=== PATIENT | male | born 1990 | race Caucasian/White ===

== ENCOUNTER → 2022-03-16 11:38 | Outpatient (BNVA) | payer OTHER, SELFPAY | PROVIDERS: PCP Internal Medicine; Visit Provider Physician Assistant Surgical | DX: Z13.89 Encounter for screening for other disorder (principal) ==

== ENCOUNTER → 2022-03-23 12:39 | Outpatient (BNVA) | payer OTHER, SELFPAY | PROVIDERS: PCP Internal Medicine; Visit Provider Physician Assistant | DX: Z98.84 Bariatric surgery status (principal) ==

== ENCOUNTER 2022-03-23 15:25 | Outpatient (REF) | payer OTHER, SELFPAY ==
[2022-03-25 11:30] LABS: H Pylori Breath Test Negative (Negative)
== END 2022-03-23 15:26 | disposition home or self-care (01) ==
LOC: HO.LNP 15:25
PROVIDERS: Visit Provider Physician Assistant
DX: Z01.818 Encounter for other preprocedural examination (principal); E66.01 Morbid (severe) obesity due to excess calories; Z98.84 Bariatric surgery status; G47.33 Obstructive sleep apnea (adult) (pediatric); Z11.0 Encounter for screening for intestinal infectious diseases
CPT/HCPCS: 83013

== ENCOUNTER 2022-03-26 08:59 | Outpatient (REF) | payer OTHER, SELFPAY ==
--- NOTE | ~2022-03-26 | XR_ITS ---
EXAMINATION: XR chest 2V CLINICAL INFORMATION: Reason for Exam E66.01 - Morbid (severe) obesity due to excess calories COMPARISON: None TECHNIQUE: 2 views of the chest FINDINGS: Clear lungs. No pneumothorax or pleural effusion. Normal cardiomediastinal silhouette. XR/XR chest 2V IMPRESSION: * Clear lungs.
--- NOTE | 2022-03-26 09:06 | ECG_ITS ---
Test Reason : obesity Blood Pressure : / mmHG Vent. Rate : 080 BPM Atrial Rate : 080 BPM P-R Int : 132 ms QRS Dur : 084 ms QT Int : 344 ms P-R-T Axes : 030 090 006 degrees QTc Int : 396 ms Normal sinus rhythm Rightward axis Borderline ECG No previous ECGs available Referred By: Roz Grover Electronically Signed By:KRISTIN CLARKE MD
[2022-03-26 09:33] LABS: MANUAL DIFF FLAG NO
[2022-03-26 10:23] LABS: Basophils Absolute Auto 0.1 X10*3/uL (0.0-0.2); Eosinophils Absolute Auto 0.2 X10*3/uL (0.0-0.4); Eosinophils Percent Auto 3.4 % (0-4); Hemoglobin 18.8 g/dl (14.0-18.0); Imm Gran Pct Auto 1.4 % (0.0-0.4); Lymphocytes Absolute Auto 2.3 X10*3/uL (1.2-4.9); Lymphocytes Percent Auto 32.6 % (20-40); Mean Corpuscular HGB Conc 33.6 g/dl (31.0-36.0); Mean Corpuscular Volume 89.3 fL (80.0-98.0); Mean Platelet Volume 9.3 fL (9.4-12.4); Monocytes Absolute Auto 0.6 X10*3/uL (0.1-1.2); Monocytes Percent Auto 8.6 % (2-11); Neutrophils Absolute Auto 3.8 x10*3/uL (2.0-8.3); Platelet Count 295 X10*3/uL (160-400); Red Blood Count 6.26 X10*6/uL (4.60-5.80); Red Cell Distribution Width 12.8 % (11.0-16.0); White Blood Count 7.1 X10*3/uL (4.8-10.8)
[2022-03-26 10:25] LABS: Hematocrit 55.9 % (42.0-52.0)
[2022-03-26 10:43] LABS: Estimated Average Glucose 111 mg/dL; Hemoglobin A1c % 5.5 %
[2022-03-26 11:21] LABS: Alanine Aminotransferase 49 U/L (0-40); Albumin Level 4.1 g/dL (3.5-5.0); Alkaline Phosphatase 46 U/L (39-117); Anion Gap 14 (12-20); Aspartate Amino Transferase 67 U/L (5-37); Bilirubin Total 0.8 mg/dL (0.0-1.0); Blood Urea Nitrogen 19 mg/dL (9-16); C Reactive Protein 0.71 mg/dL (< or = 0.50); Calcium 9.4 mg/dL (8.4-10.2); Carbon Dioxide 26 mmol/L (22-29); Chloride 104 mmol/L (96-108); Cholesterol 197 mg/dL; Estimated Glomerular Filt Rate > 60; Glucose Random 73 mg/dL (60-115); HDL Cholesterol 38 mg/dL; Iron 156 mcg/dL (45-160); LDL Cholesterol Calculated 138 mg/dl; Percent Iron Saturation 52 % (15-50); Potassium 4.1 mmol/L (3.3-5.1); Sodium 140 mmol/L (135-145); Total Iron Binding Capacity 298 mcg/dL (228-428); Total Protein 7.2 g/dL (6.5-8.0); Triglycerides 109 mg/dL; Unsaturated Iron Binding 142 ug/dL
[2022-03-26 11:42] LABS: Folate 11.8 ng/mL (> or = 4.0); Vitamin B12 476 pg/mL (200-900)
[2022-03-26 11:46] LABS: Ferritin 114 ng/mL (20-250); Insulin 12 uU/mL (2-29); TSH reflex Free T4 1.55 uIU/mL (0.32-4.0); Vitamin D 25-OH Total 14.8 ng/mL (>30)
[2022-03-27 13:38] LABS: Calcium (PTHI) 9.4 mg/dL (8.6-10.3); PTHI 40 pg/mL (16-77)
[2022-03-29 23:06] LABS: Vitamin A 52 mcg/dL (38-98)
[2022-03-30 06:28] LABS: Vitamin B1 11 nmol/L (8-30)
[2022-03-30 15:38] LABS: Zinc 78 mcg/dL (60-130)
== END 2022-03-26 09:00 | disposition home or self-care (01) ==
LOC: HO.XRAY 08:59
PROVIDERS: PCP Internal Medicine; Visit Provider Physician Assistant
DX: Z01.818 Encounter for other preprocedural examination (principal); E66.01 Morbid (severe) obesity due to excess calories; G47.33 Obstructive sleep apnea (adult) (pediatric); Z98.84 Bariatric surgery status
CPT/HCPCS: 36415; 71046; 80053; 80061; 82306; 82607; 82728; 82746; 83036; 83525; 83540; 83970; 84425; 84443; 84590; 84630; 85025; 86140; 93005

== ENCOUNTER → 2022-04-13 15:28 | Outpatient (BNVA) | payer OTHER, SELFPAY | PROVIDERS: PCP Internal Medicine; Visit Provider Physician Assistant | DX: Z98.84 Bariatric surgery status (principal) ==

== ENCOUNTER → 2022-04-16 11:22 | Outpatient (BNVA) | payer OTHER, SELFPAY | PROVIDERS: PCP Internal Medicine; Visit Provider Dietitian, Registered | DX: E66.01 Morbid (severe) obesity due to excess calories (principal) | CPT/HCPCS: 97802 ==

== ENCOUNTER → 2022-04-20 08:17 | Outpatient (BNVA) | payer OTHER, SELFPAY | PROVIDERS: PCP Internal Medicine; Visit Provider Physician Assistant Surgical | DX: Z13.89 Encounter for screening for other disorder (principal) ==

== ENCOUNTER → 2022-04-28 14:30 | Outpatient (BNVA) | payer OTHER, SELFPAY | PROVIDERS: Visit Provider Counselor Mental Health | DX: F43.21 Adjustment disorder with depressed mood (principal); E66.01 Morbid (severe) obesity due to excess calories; Z98.84 Bariatric surgery status | CPT/HCPCS: 90791 ==

== ENCOUNTER → 2022-05-04 16:00 | Outpatient (BNVA) | payer OTHER, SELFPAY | PROVIDERS: PCP Internal Medicine; Visit Provider Physician Assistant | DX: Z13.89 Encounter for screening for other disorder (principal) ==

== ENCOUNTER 2022-05-11 08:48 | Outpatient (REF) | payer OTHER, SELFPAY ==
--- NOTE | ~2022-05-11 | US_ITS ---
EXAMINATION: US COMPLETE ABDOMEN WITH LIVER ELASTOGRAPHY CLINICAL INFORMATION: [id number]-lswaxg obesity due to excess calories. COMPARISON: None. TECHNIQUE: Real-time imaging of the abdominal viscera. Noninvasive ultrasound liver fibrosis assessment is performed using Mary ElastPQ point quantification shear wave elastography (2D-SWE) with a C5-2 MHz transducer. Multiple elastography samples are obtained. FINDINGS: PANCREAS: Normal. The visualized pancreatic head and body are normal in appearance. The remainder of the pancreas is obscured from visualization by the overlying bowel gas. ABDOMINAL AORTA: The proximal, middle, and distal aortic segments are normal in caliber. INFERIOR VENA CAVA: Visualized portions are normal. LIVER: The liver is high riding and subcostal limiting evaluation of the liver. The liver demonstrates normal size, contour and increased echogenicity. No focal lesion or intrahepatic biliary duct dilatation. The right lobe measures 19.8 cm in length. The left lobe measures 12.2 cm in length. Portal flow is hepatopedal Shear wave liver elastography median stiffness is 1.4 m/s (reference: normal median stiffness is 1.3 m/s or less). IQR/median stiffness to assess sampling precision is 0.36 (reference: good quality data set is IQR/median stiffness of 0.15 or less). GALLBLADDER: The gallbladder is physiologically distended without evidence of stones, sludge, polyps, wall thickening or pericholecystic fluid. COMMON BILE DUCT: Normal in caliber measuring 0.3 cm in diameter. RIGHT KIDNEY: Normal. No hydronephrosis. No renal calculi or focal parenchymal lesions. The kidney measures 11.9 cm in maximum dimension. LEFT KIDNEY: Normal. No hydronephrosis. No renal calculi or focal parenchymal lesions. The kidney measures 11.7 cm in maximum dimension. SPLEEN: Normal. The spleen measures 11.4 cm in maximum dimension. FREE FLUID: None. US/US abdomen comp w elastography IMPRESSION: 1. Small gallbladder polyps. 2. Mild hepatic steatosis. 3. Liver elastography: Again liver stiffness measures 1.4 m/s corresponding to cACLD (ruled out). REFERENCE: Society of Radiologists in Ultrasound Liver Stiffness Thresholds (2020): LIVER STIFFNESS THRESHOLDS: *Liver Stiffness equal or less than 1.3 m/s: High probability of being normal. *Liver Stiffness less than 1.7 m/s: In the absence of other known clinical signs, rules out compensated advanced chronic liver disease. *Liver Stiffness 1.7-2.1 m/s: Suggestive of compensated advanced chronic liver disease but need further test for confirmation. *Liver Stiffness over 2.1 m/s: Rules in compensated advanced chronic liver disease. *Liver Stiffness over 2.4 m/s: Suggestive of clinically significant portal hypertension. QUALITY OF DATA SET: *IQR/Median value equal or less than 0.15 implies a quality data set. *IQR/Median value over 0.15 implies a poor quality data set. SIGNIFICANT CHANGE FROM PRIOR EXAM: Significant change if liver stiffness measurement is 10% or greater from prior exam. OTHER CONSIDERATIONS: The stage of liver fibrosis may be overestimated in the setting of acute hepatitis, liver inflammation, elevated liver function tests, hepatic vascular congestion, obstructive cholestasis, non-fasting state, and infiltrative diseases such as amyloidosis and lymphoma. In some patients with NAFLD, the liver stiffness thresholds for compensated advanced chronic liver disease may be lower. In causes other than viral hepatitis and NAFLD, liver stiffness thresholds are not well established.
--- NOTE | ~2022-05-11 | FL_ITS ---
PROCEDURE: XR FLUOROSCOPY UPPER GI WITH AIR CLINICAL INFORMATION: Morbid/severe obesity. COMPARISON: None TECHNIQUE: Routine upper GI air-contrast study was performed in upright and lying position. FINDINGS: Following oral administration of thick barium and effervescent granules there is normal propagation of bolus from the oral cavity through the pharynx, esophagus into stomach without any evidence of obstruction, narrowing or stricture. On placing patient supine and prone there is evidence of previous gastric sleeve surgery. The fundal part of the stomach appears almost normal caliber as before. The gastric body is slightly narrowed. The distal stomach, duodenum and the sweep is normal. The mucosal pattern of stomach, duodenal bulb and the sweep is normal. Mild gastroesophageal reflux was seen. FLUOROSCOPY TIME: 1.7 minutes DOSE AREA PRODUCT: 93.898 uGy-m2 (microgray-meter squared) FL/FL upper GI w air IMPRESSION: Mild gastroesophageal reflux. Evidence of previous gastric sleeve surgery. The fundus appears normal caliber same as before. The body of the stomach is narrowed. The pylorus is normal caliber. No mucosal abnormality seen.
== END 2022-05-11 08:49 | disposition home or self-care (01) ==
LOC: HO.US 08:48
PROVIDERS: PCP Internal Medicine; Visit Provider Physician Assistant
DX: Z01.818 Encounter for other preprocedural examination (principal); E66.01 Morbid (severe) obesity due to excess calories; G47.33 Obstructive sleep apnea (adult) (pediatric); Z98.84 Bariatric surgery status
CPT/HCPCS: 74246; 76705; 76981

== ENCOUNTER → 2022-05-20 08:12 | Outpatient (BNVA) | payer OTHER, SELFPAY | PROVIDERS: PCP Internal Medicine; Visit Provider Surgery | DX: Z13.89 Encounter for screening for other disorder (principal) ==

== ENCOUNTER 2022-06-03 07:32 | Outpatient (REF) | payer OTHER, SELFPAY ==
[2022-06-03 07:51] LABS: MANUAL DIFF FLAG NO
[2022-06-03 08:12] LABS: Prothrombin Time 11.7 SEC (10.0-13.1)
[2022-06-03 08:14] LABS: Estimated Average Glucose 105 mg/dL; Hemoglobin A1c % 5.3 %
[2022-06-03 08:15] LABS: Partial Thromboplastin Time 34.9 SEC (26.0-36.4)
[2022-06-03 08:21] LABS: Basophils Percent Auto 0.5 % (0-2); Eosinophils Absolute Auto 0.2 X10*3/uL (0.0-0.4); Eosinophils Percent Auto 2.9 % (0-4); Hemoglobin 18.8 g/dl (14.0-18.0); Imm Gran Abs Auto 0.08 X10*3/uL (0.00-0.03); Lymphocytes Absolute Auto 1.9 X10*3/uL (1.2-4.9); Lymphocytes Percent Auto 23.6 % (20-40); Mean Corpuscular HGB Conc 33.4 g/dl (31.0-36.0); Mean Corpuscular Hemoglobin 29.9 pg (27.0-33.0); Mean Corpuscular Volume 89.5 fL (80.0-98.0); Mean Platelet Volume 9.1 fL (9.4-12.4); Monocytes Absolute Auto 0.6 X10*3/uL (0.1-1.2); Monocytes Percent Auto 7.4 % (2-11); Neutrophils Absolute Auto 5.1 x10*3/uL (2.0-8.3); Neutrophils Percent Auto 64.6 % (45-73); Platelet Count 248 X10*3/uL (160-400); Red Blood Count 6.29 X10*6/uL (4.60-5.80); Red Cell Distribution Width 13.3 % (11.0-16.0); White Blood Count 7.9 X10*3/uL (4.8-10.8)
[2022-06-03 08:26] LABS: Hematocrit 56.3 % (42.0-52.0)
[2022-06-03 08:47] LABS: Alanine Aminotransferase 26 U/L (0-40); Albumin Level 4.2 g/dL (3.5-5.0); Alkaline Phosphatase 57 U/L (39-117); Anion Gap 11 (12-20); Aspartate Amino Transferase 22 U/L (5-37); Bilirubin Total 0.9 mg/dL (0.0-1.0); Blood Urea Nitrogen 12 mg/dL (9-16); C Reactive Protein 0.48 mg/dL (< or = 0.50); Calcium 9.1 mg/dL (8.4-10.2); Carbon Dioxide 23 mmol/L (22-29); Chloride 111 mmol/L (96-108); Cholesterol 223 mg/dL; Estimated Glomerular Filt Rate > 60; Glucose Random 100 mg/dL (60-115); HDL Cholesterol 41 mg/dL; LDL Cholesterol Calculated 159 mg/dl; Potassium 4.1 mmol/L (3.3-5.1); Sodium 141 mmol/L (135-145); Triglycerides 117 mg/dL
[2022-06-03 08:52] LABS: Insulin 25 uU/mL (2-29); TSH reflex Free T4 1.64 uIU/mL (0.32-4.0)
== END 2022-06-03 07:33 | disposition home or self-care (01) ==
LOC: HO.LAB 07:32
PROVIDERS: PCP Internal Medicine; Visit Provider Surgery
DX: Z01.818 Encounter for other preprocedural examination (principal); E66.01 Morbid (severe) obesity due to excess calories
CPT/HCPCS: 36415; 80053; 80061; 83036; 83525; 84443; 85025; 85610; 85730; 86140

== ENCOUNTER → 2022-06-08 09:26 | Outpatient (BNVA) | payer OTHER, SELFPAY | PROVIDERS: PCP Internal Medicine; Visit Provider Surgery | DX: Z13.89 Encounter for screening for other disorder (principal) ==

== ENCOUNTER 2022-06-11 17:00 | Inpatient (IN) | payer OTHER, SELFPAY ==
[2022-06-05 12:04] VITALS: BMI 43.0
--- NOTE | 2022-06-05 17:41 | MHC.SHP ---
Pre-Procedural Eval Section A Date of Service: 06/05/22 The patient is an INPATIENT: Yes The History & Physical has been completed within 30 days and I have reviewed it.: Yes Section B Chief Complaint: Morbid (severe) obesity due to excess calories Relevant Family History (Specify if Yes): No Relevant Social History: None Present Medications: None Medical History: No relevant PMH History of Previous Operations: Relevant previous surgery/procedure and date(s) (laparoscopic sleeve gastrectomy) Allergies: Allergies Allergy/AdvReac Type Severity Reaction Status Date / Time No Known Allergies Allergy Verified 06/05/22 12:03 Review of Systems Sugical H&P ROS: Negative: Constitution, Cardiovascular, Respiratory, Neurological, Psychiatric, Hem-Onc, Allergic/Immunologic, Gastrointestinal, Genitourinary, Musculoskeletal, Integumentary, Endocrine and Eyes/Ears/Nose/Throat Exam Surgical H&P Exam: Normal: HEENT, Normal: Heart, Normal: Lungs, Normal: Extremities, Normal: Abdomen, Normal: Skin and Normal: Neurological Plan Diagnosis/Plan: Unchanged I have reviewed the history and physical and performed a pertinent physical examination on my patient. No changes have occurred unless specified. Time Spent With Patient Time: Total time managing care of this patient today ____ minutes.
[2022-06-10 12:12] LABS: COVID-19 Test Negative (Negative); IDNOW Serial# 08D9AD1C
[2022-06-11] VITALS (17 sets, daily range): BP systolic 119–175; BP diastolic 69–121; PULSE 85–122; RESP 16–32; TEMP 36.6–37.4; O2SAT 94–97; BMI 41.8
--- NOTE | ~2022-06-11 | US_ITS ---
EXAMINATION: US VENOUS WITH DOPPLER UPPER EXTREMITY, BILATERAL CLINICAL INFORMATION: Possible compartment syndrome COMPARISON: None available. TECHNIQUE: Ultrasound of the upper extremity is performed using compression sonography and color and pulse Doppler flow with assessment of augmentation of flow. There is also imaging and Doppler assessment of the jugular and subclavian veins. Spectral analysis with color-flow imaging is performed. FINDINGS: Respiratory variation, normal compression, and augmented flow are noted throughout the upper extremity including the axillary, brachial, cubital, and radial and ulnar veins. There is normal flow in the internal jugular and subclavian veins. There is no visible deep or superficial thrombophlebitis. If the patient's symptoms progress, a followup ultrasound in 5 -7 days might be of value to exclude proximal propagation from a nonvisualized distal arm vein. US/US venous duplex UE BI IMPRESSION: Deep venous system of the upper extremities are patent. No evidence of deep venous thrombosis
--- NOTE | ~2022-06-11 | US_ITS ---
EXAMINATION: US ARTERIAL DUPLEX UPPER EXTREMITY BILATERAL CLINICAL INFORMATION: Clinical concern of compartment syndrome. COMPARISON: None TECHNIQUE: Grayscale imaging and duplex Doppler imaging with spectral waveform analysis of upper extremity arteries is performed. FINDINGS: The subclavian, axillary, brachial, radial and ulnar arteries in each upper extremity exhibit normal multiphasic waveforms. No evidence of any hemodynamically significant vessel stenosis. No evidence of vascular occlusion within the examined vessels. No tardus-parvus flow in any of the examined vessels. The peak systolic velocity measurements within the vessels (cm/sec) are as follows: RIGHT Subclavian: 104 - 111 Axillary: 106 Brachial, proximal: 109 Brachial, mid: 83 Brachial, distal: 97 Radial, proximal: 62 Radial, mid: 69 Radial, distal: 93 Ulnar, proximal: 54 Ulnar, mid: 79 Ulnar, distal: 78 LEFT: Subclavian: 93 - 116 Axillary: 100 Brachial, proximal: 82 Brachial, mid: 78 Brachial, distal: 53 Radial, proximal: 54 Radial, mid: 93 Radial, distal: 105 Ulnar, proximal: 86 Ulnar, mid: 61 Ulnar, distal: no images US/US arterial duplex UE BI IMPRESSION: There is no evidence of compromised arterial flow in either upper extremity. The evaluated arteries have normal multiphasic waveforms. No vascular occlusion or hemodynamically significant stenosis.
--- NOTE | ~2022-06-11 | CT_ITS ---
EXAMINATION: CT FOREARM WITHOUT CONTRAST, LEFT CLINICAL INFORMATION: Rhabdomyolysis distal left upper extremity COMPARISON: Same day ultrasound TECHNIQUE: A noncontrast CT of the left forearm with sagittal and coronal reformats. This CT examination was performed using dose optimization techniques as appropriate, variously including the following: *Automated exposure control *Adjustment of mA and/or kV according to patient size (this includes techniques or standardized protocols for targeted exams where dose is matched to indication/reason for exam; i.e. extremities or head) *Use of iterative reconstruction technique DLP: 296 FINDINGS: There is no muscle atrophy or asymmetry of the forearm. No soft tissue gas. There is articular edema of the subcutaneous fat of the proximal forearm anteriorly. No osseous abnormality. There is questionable hypoattenuation/edema of the brachialis muscle although this may be artifactual. No abnormality demonstrated on recent ultrasound. No elbow joint effusion. CT/CT forearm LT wo IV con IMPRESSION: There is nonspecific subcutaneous edema of the proximal forearm anteriorly. This could be due to a recent IV or attempted IV access. No focal collection. Questionable hypoattenuation/edema of the brachialis muscle. Correlate clinically and consider MRI if further evaluation is desired. No soft tissue gas. No osseous abnormality.
[2022-06-11] MEDS: Lactated Ringers 1,000 ML 999 ML IV (06:36)
--- NOTE | 2022-06-11 07:24 | HO.ANESPROP2 ---
HPI - Anesthesia Eval Consult details Narrative: 32yo male patient for EGD, Laparoscopic sleeve gastrectomy, possible diaphragmatic hernia repair, possible ventral hernia repair, possible open PMFSH Active Problems Active Problems: All Active Problems (Updated 06/10/22 @ 07:28 by Edilia Iqbal RN) Morbid obesity (Acute) S/P laparoscopic sleeve gastrectomy (Acute) Pre-op evaluation (Acute) Obstructive sleep apnea (Acute) Adjustment disorder with depressed mood (Acute) Past Medical History Medical History Sleep apnea Family History Family History Mother Arthritis Fibromyalgia Father No problems noted. Sister No problems noted. Son No problems noted. Son Asthma Family history of problems with anesthesia: No Surgical History Surgical History Hx of bariatric surgery Hx of knee surgery History of Problems with Anesthesia: No Social History Social History Household Members: Family Housing: House Are you a primary home care scheduler to a significant other at home: No Do you presently have visiting nurse or other home services: No Alcohol intake: current Alcohol intake frequency: does not drink Patient Tobacco Use Status: Never used Tobacco Use of substances other than those prescribed or required for medical reasons: No Have you been hit, kicked, punched, or otherwise hurt by someone within the past year? 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 Allergies Allergy/AdvReac Type Severity Reaction Status Date / Time No Known Allergies Allergy Verified 06/05/22 12:03 Active Medications: Current Medications Lactated Ringer's (Lr) 1,000 mls @ 999 mls/hr IV .Q1H1M SAMMY Stop: 06/11/22 08:15 Last Admin: 06/11/22 06:36 Dose: 999 mls/hr Exam Exam Date and Time: June 11, 202224 Height,Weight and Vital Signs: Height 5 ft 8 in Weight 128.367 kg Last Vital Signs Temp 97.8 F 06/11/22 06:19 Pulse 85 06/11/22 06:19 Resp 16 06/11/22 06:19 BP 119/83 06/11/22 06:19 Pulse Ox 96 06/11/22 06:19 O2 Del Method Room Air 06/11/22 06:19 Pertinent Lab Results Pertinent Lab Results: Laboratory Tests 06/03/22 06/10/22 07:45 11:42 COVID-19 (ELIANA) Negative COVID-19 Clin Com See Note Blood Type O Positive Antibody Screen NEGATIVE Airway Mallampati Class: III TM Dist: >3cm Neck ROM: Full Loose/Missing/Broken Teeth: No (Denies broken, loose, missing teeth) Heart: RRR Lungs: CTAB Assessment and Plan Assessment Anesthesia Assessment: Anesthesia Plan Discussed and Chart Reviewed Final Anesthetic Review Family History of Problems with Anesthesia: No History of Problems with Anesthesia: No NPO: Yes ASA Class: III Final Preanesthetic Review: No Changes in Pt Med Stat, Meds/Allgs Chart Reviewed, Consent Obtained/Reviewed and Anes Risks/Benef Reviewed Patient Risk: Intermediate Procedure Risk: Intermediate Assessment/Block/Sedation in SS: Assess/Block/Sedation-SS Anesthetic Plan Anesthetic Plan: GA Disposition: Standard PACU and Inp. Admit - Standard Bed
--- NOTE | 2022-06-11 07:34 | PM.OP ---
Brief Operative Note Date of Service: 06/11/22 Pre-op diagnosis: Morbid obesity with comorbidities (see below) Post-op diagnosis: same Procedure: INITIAL PATIENT BMI ON PRESENTATION AT OUR OFFICE: 48.3 kg/m2 LAST BMI BEFORE SURGERY: 43.3 kg/m2 COMORBIDITIES: sleep apnea on CPAP, GERD, liver steatosis ?The patient presented to the Weight Management Program with significant obesity that was negatively impacting the patient's comorbidities as listed above.? The program is a phased program with a special focus on preoperative medical weight management to promote substantial weight loss and prepare the patients for the second phase of the program: bariatric surgery. The patient participated in an intensive weekly lifestyle ?intervention and exercise program during which the patient ?has lost between the initial office visit and the last preoperative visit 6.6lbs, or 2.51% of initial actual body weight. It was deemed appropriate for the patient to now have bariatric surgery. In light of the current Covid-19 pandemic and the well documented strong association of obesity and increased risk of worse outcomes if infected with Covid-19 (REFERENCES:https://pubmed.ncbi.nlm.nih.gov/64069174/,?https://pubmed.ncbi.nlm.nih.gov/00294642/), any delay in undergoing bariatric surgery may lead to the patient's worsening health condition and increased?risk of more severe Covid-19 disease if infected. In addition a recent?study from [facility] published in [facility] on 03/03/2021 ([email or web address]/C:/[email or web address]) found that, among patients with obesity, substantial weight loss achieved with surgery was associated with improved outcomes of COVID-19 infection. The findings suggest that obesity can be a modifiable risk factor for the severity of COVID-19 infection. In addition, the patient met the BMI-criteria for bariatric surgery based on the BMI on initial presentation. The patient should not be penalized for achieving such weight loss because ?it is not sustainable long-term without surgical intervention and it was achieved in preparation for bariatric surgery ?under my direction and based on my published research ([email or web address]:/[email or web address]).pdf and?https://www.soard.org/article/[email or web address](93)58918-X/pdf) ?that a 10% preoperative weight loss improves long-term weight loss after surgery and reduces perioperative complications.? Insurance carriers such as [employer] [facility] [facility] have endorsed my recommendations ?and have included in their policies criteria to include a 10% preoperative weight loss requirement. PROCEDURE: Esophago-gastroscopy, laparoscopic repair of incarcerated diaphragmatic hernia, laparoscopic lysis of adhesions, laparoscopic sleeve gastrectomy and laparoscopic gastropexy INDICATIONS: This is a 32 year-old male who was electively scheduled for laparoscopic, possibly open sleeve gastrectomy revision. The patient has a previous sleeve gastrectomy on 06/30/2011 at [facility] with Dr. Arvizu. Preoperative work-up including an UGI and EGD is suggestive of a very large proximal pouch of retained gastric fundus as well as incomplete distal antral resection. The objective of this operation is to redo the sleeve. The risks and complications of the procedure were discussed with the patient in advance, particularly the possibility of ; pulmonary embolism; staple line leak; bleeding; GERD; cardiac, pulmonary, or renal complications; as well as long-term problems such as insufficient weight loss, vitamin deficiency, strictures, or ulcers. The patient understood all the risks, and was in agreement to proceed with surgery. DESCRIPTION OF PROCEDURE: After informed consent was obtained from the patient, the patient was given preoperative antibiotics, and was transferred to the operating room. After successful induction of general anesthesia, pneumatic compression devices were placed on both lower extremities. An upper endoscopy was performed next. The oropharynx and esophagus appeared to be within normal limits. There was no diaphragmatic hernia present consistent with the findings of the preoperative upper GI. The stomach was entered. Then after all fluid and air were suctioned and the stomach was fully decompressed, the scope was withdrawn and secured in the mid esophagus. The patient was then prepped and draped in the usual sterile manner, and abdominal access was established at the right upper quadrant with the Shonna technique. A 12 mm blunt port was inserted, and the abdomen was insufflated with CO2 to a pressure of 15 mmHg. Under direct visualization, additional ports were placed, specifically two 5 mm Versi-step ports to the left upper quadrant, and a 5 mm Versi-Step port to the right upper quadrant. 1% lidocaine plain was used to infiltrate all port sites as well as all fascia defects. Following that, the patient was placed in a steep reverse Trendelenburg position. An additional 5 mm port was placed to the right flank for the Mediflex retractor that was used to retract the left lobe of the liver. There were very extensive and dense adhesions in the abdomen from previous sleeve gastrectomy involving the left lobe of the liver and the stomach. The staple line of the sleeve was completely rotated almost 180 degrees and it was densely adherent to the undersurface of the left lobe of the liver. This required extensive abd very tedious dissection in order to be completely from the liver. It took 3.5 hours to achieve this but eventually I was able to lyse these adhesions completely with the ultrasonic device. That allowed to re-position the liver retractor in order to expose the hiatal area. The gastro-esophageal fat pad was opened with the ultrasonic device ([employer], Olympus) and the anterior esophagus and hiatus were exposed. There was no angle of His present. The entire fundus was densely adherent to the left diaphragm. Some of these adhesions were opened with the ultrasonic device partially the fundus of the stomach from any diaphragmatic and splenic attachments. I then opened the gastrocolic ligament between the transverse colon and the greater curvature of the stomach with the ultrasonic device to enter the lesser sac. This was very difficult as there were dense adhesions from previous sleeve gastrectomy. The other surgeon had left an enormous amount of gastric fundus almost to the point that it appeared there was no sleeve resection done. The previous surgeon did not dissect adequately posterior leaving short gastric vessels? which resulted in a much larger proximal stomach which was confirmed by the preoperative UGI and EGD. These posterior short gastric vessels were ligated as well as other posterior attachments that were not divided originally. These attachments were completely twisting the stomach. This allowed us to mobilize the stomach completely and appreciate the amount of stomach that was inappropriately left unresected at the original operation.? Mobilization of the stomach took approximately another 90 min to complete with a total operative time of 6.5 hours. The dissection continued all the way to the angle of His until the left robbie was completely dissected at its entirety. This was also very difficult because there were very dense attachments to the spleen. Eventually the gastric fundus was completely mobilized. At that point a Quinn was placed as the procedure took significantly more time than anticipated. The stomach was then divided transversely with two Endo FRANCOIS-45 purple loads, 4 FRANCOIS-45 orange loads and one RFANCOIS-60 purple load using the AEON stapler and loads. Every effort was made that the gastric sleeve had a tubular shape and an even caliber throughout. Multiple endoscopies were performed before each staple fire to ensure that I did not narrow the gastro-esophageal junction or the stomach anywhere. Once the sleeve resection was completed, the staple line of the gastric sleeve was reinforced with Hemoclips. The resected stomach was retrieved without difficulty from the Shonna port. A gastropexy was then performed in order to prevent postoperative GERD and partial gastric volvulus. Several interrupted 2.0 Surgidac sutures were placed between the sleeve's staple line and the previously divided greater omentum and gastro-colic ligament using the Endo-Stitch device. ?An upper endoscopy was performed. There was no narrowing at the GE junction. The scope was easily advanced all the way to the pylorus which was clearly visualized. There was no narrowing anywhere and the sleeve's caliber was even throughout. The sleeve's staple line was inspected and there was no evidence of ischemia, bleeding or dehiscence. At that point the gastroscope was withdrawn from the patient?s mouth while we were decompressing the bowel and the stomach from any remaining air. I looked into the lesser sac to see how the sleeve was situating and it was situating well. There was no bleeding from the staple line, spleen, or short gastric vessels. The Mediflex retractor was removed, and the undersurface of the liver was inspected and there was no bleeding. The patient was placed in supine position. I closed the fascial defect of the 12 mm port site with a figure of eight #1 Polysorb suture. Then 30cc Ropivacaine plain with 10 mg of Dexamethasone were used to infiltrate the fascial closure as well as all skin incisions. A total of 7ml Zynrelef was used at the Shonna port site. At this point, the abdomen was deflated, all ports were removed under direct vision, and no bleeding was noted from any of the port sites. The skin incisions were irrigated with saline and were closed with 4-0 absorbable monofilament sutures. Steri-Strips and OpSites were used to cover all incisions. The patient was extubated and was transferred in stable condition to the recovery room for further care. I was present and performed all gavin parts of the procedure. Mr. Jones was the surgical dental assistant. There were no residents to assist with this case. This was a uniquely difficult surgery for all the above reasons. Taye Newton MD, PhD, FACS Surgeon: Manny Newton MD Anesthesia: GETA, local and other (TAP block and 7ml Zynrelef) Was an Pipefitter Helper used for this Procedure?: Yes Pipefitter Helper: Raymond Jones Estimated blood loss (mL): 10 IV fluids (mL): 4,000 Urine output (mL): 90 Pathology: other (Stomach) Condition: stable Disposition: PACU
--- NOTE | 2022-06-11 07:37 | PM.PNGS ---
Subjective Subjective Date of Service: 06/12/22 Interval history: Feels well. Mild incisional pain. He is tolerating phase 1 bariatric diet No abdominal pain. No nausea or vomiting Has significant pain in the soles and hands/forearms bilaterally. Cannot move his fingers completely especially the left Has acute renal injury yesterday and evidence of rhamdomyolysis due to the extensive length of surgery. Was treated wih aggressive fluid hydration and sodium bicarbonate and creatinine is normal today. Good urine output Also required CPAP yesterday and he is hypertensive although he has no history of it requiring IV Metoprolol Physical Exam Vital Signs: Vital Signs: Last Vital Signs Temp 97.8 F 06/11/22 06:19 Pulse 85 06/11/22 06:19 Resp 16 06/11/22 06:19 BP 119/83 06/11/22 06:19 Pulse Ox 96 06/11/22 06:19 O2 Del Method Room Air 06/11/22 06:19 BMI result Body Mass Index 43.0 GI: Inspection: Yes normal to inspection, Yes incision (clean, dry and intact) and Yes obesity Palpation (GI): Soft to palpation Extrem: Right upper extremity: elbow/forearm (tenderness on palpation, limited motion range) and Extremity exam: right hand (Cannot flex/extend fingers well) Left upper extremity: elbow/forearm (tenderness on palpation, limited motion range) and hand (cannot extend / flex fingers well) Right lower extremity: normal to inspection (no calf tenderness) and foot (some tenderness on the sole) Left lower extremity: normal to inspection (no calf tenderness) and foot (some tenderness on the sole) Objective Data Active Medications Lactated Ringer's (Lr) 1,000 mls @ 999 mls/hr IV .Q1H1M SAMMY Stop: 06/11/22 08:15 Last Admin: 06/11/22 06:36 Dose: 999 mls/hr Documented By: DANYELLE Labs 06/11/22 15:36 06/11/22 15:36 Labs: Laboratory Results - last 24 hr 06/10/22 11:42 COVID-19 (ELIANA) Negative COVID-19 Clin Com See Note Procedures Date of Service Date of Service: 06/12/22 Progress Note: A&P Assessment and plan (1) Morbid obesity: Status: Acute Assessment and Plan: s/p laparoscopic sleeve gastrectomy revision, extensive lysis of adhesions, and gastropexy Doing well from GI perspective Continue aggressive fluid hydration. Will need Lasix later today Continue CK levels Continue IV Lopressor PT evaluation Keep arms/legs elevated Will keep him in the hopsital today for monitoring of rhamdomyolysis and MARIA L (2) S/P laparoscopic sleeve gastrectomy: Status: Acute (3) Obstructive sleep apnea: Status: Acute (4) GERD (gastroesophageal reflux disease): Status: Acute (5) Steatosis, liver: Status: Acute (6) Intra-abdominal adhesions: Status: Acute (7) Rhabdomyolysis: Status: Acute (8) Acute kidney injury: Status: Acute (9) Hypertension: Status: Acute Time Spent With Patient Time: Total time managing care of this patient today ____ minutes. Quality Stroke Does the patient have a stroke diagnosis?: No VTE Prior VTE?: No VTE Risk Level:: Surgical - moderate VTE Device Contraindication: N/A - Device Ordered VTE Drug Contraindication: Treatment Not Indicated
--- NOTE | 2022-06-11 15:13 | P.DS_ITS ---
DS: Providers Provider Date of Service: 06/13/22 Primary care physician: Sirisha Reyes MD DS: Diagnosis Discharge Diagnosis (1) Morbid obesity: Status: Acute (2) S/P laparoscopic sleeve gastrectomy: Status: Acute (3) Obstructive sleep apnea: Status: Acute (4) GERD (gastroesophageal reflux disease): Status: Acute (5) Steatosis, liver: Status: Acute DS: Summary Hospital Course Hospital Course: ADMITTING DIAGNOSIS: morbid obesity, RIMMA ? DISCHARGE DIAGNOSIS: same, s/p laparoscopic sleeve gastrectomy and lysis of adhesions, maria l, rhabdomyolysis ? PAST SURGICAL HISTORY: laparoscopic sleeve gastrectomy ? PROCEDURE: upper endoscopy, laparoscopic sleeve gastrectomy and lysis of adhesions ? DISCHARGE SUMMARY: ? History of Present Illness: ? The patient is a?32 year-old male with a BMI of?47 kg/m2 and associated co- morbidities as described above. The patient had extensive work-up,lost?35.4 lbs preoperatively and was electively scheduled for laparoscopic, possible open sleeve gastrectomy and gastropexy. Risks and complications of the surgery were discussed with the patient in advance, particularly the possibility of , pulmonary embolism, anastomotic leak, bleeding, bowel injury, GERD, cardiac, renal or pulmonary complications. The patient understood all the risks and was in agreement with the surgical plan. ? Hospital Course: ? The patient underwent an uneventful laparoscopic sleeve gastrectomy with gastropexy and lysis of adhesions on the day of admission. Postoperatively, the patient was transferred to the surgical floor. The patient received IV Acetaminophen and IV dilaudid for pain control. Patient was started on bariatric phase 1 diet POD #0. On postoperative day one, the patient was feeling well without nausea, vomiting, fevers, or tachycardia. The patient had some mild incisional pain and the abdomen was soft. ? On the morning of postoperative day one, the patient was continued on 1 ounce of water or ice every half hour. He was found to have MARIA L and rhabdomyolysis with CK 14,000. He was given IVF and CK trended down POD 2 to 7000. He was also seen in consultation by vascular surgery and neurology for his BUE neuropathy and bilateral foot neuropathy. Neurology felt that his symptoms of BUE neuropathy was consistent with acute rhabdomyolysis and should improve to normal over the coming days to weeks. Vascular surgery reviewed his LUE ct scan and US with no evidence of DVT or compartment syndrome per vascular surgeons exam on the afternoon of POD 2. As he had such imporvement in his symptoms, it was felt he could be discharged homw on late POD 2. During the day, the patient did fairly well, having some incisional pain, but able to ambulate adequately and to tolerate liquids well. ? Since the patient is doing well, we decided that the patient was ready to be discharged. The patient was given instructions to follow-up with me next week and to call my office for any fever over 101, persistent abdominal pain, nausea, vomiting, GERD, symptoms of DVT such as calf tenderness, or leg swelling, or pulmonary embolism such as chest pain or shortness of breath. The patient was also instructed to drink 40-60 ounces of liquids per day using the 1-ounce cups. The patient had been given prescriptions for Tylenol for pain, Zofran prn for nausea, and pantoprazole and carafate previously. The patient was encouraged to ambulate and use the incentive spirometer. The patient was allowed to shower, but no baths, and encouraged to stay active at home. All of these instructions were given to the patient personally. All questions were answered and the patient understood all instructions, the instructions were also given to the patient in print. Time Spent with Patient Time attestation: Total time managing care of this patient today ____ minutes. Discharge coordination time: Less than 30 minutes Quality: Safe Use of Opioids Does Pt have an Active Cancer Diagnosis on the Problem List?: No Quality: Stroke Does the patient have a stroke diagnosis?: No Physical Exam Vital Signs: Vital Signs: Last Vital Signs Temp 97.8 F 06/11/22 06:19 Pulse 85 06/11/22 06:19 Resp 16 06/11/22 06:19 BP 119/83 06/11/22 06:19 Pulse Ox 96 06/11/22 06:19 O2 Del Method Room Air 06/11/22 06:19 BMI result Body Mass Index 43.0 DS: Data Data Completed and Pending Pending studies at discharge: Pending at discharge 06/11/22 13:50 Surgical [PTH] Routine Discharge Plan Discharge Anticipated Discharge Date/Time: 06/13/22 19:34 Patient Disposition: Home, Self-Care Discharge Diagnosis: Morbid obesity Referrals: Sirisha Reyes MD [Primary Care Provider] - 1 Week Discharge Medications: Continued pantoprazole 40 mg tablet,delayed release (DR/EC) 40 mg PO DAILY Qty: 30 2RF sucralfate 100 mg/mL suspension 10 ml PO BID Qty: 400 2RF ondansetron 4 mg tablet,disintegrating 4 mg PO Q12H Qty: 20 0RF Rx Instructions: ONLY use if you have nausea as needed Discontinued cholecalciferol (vitamin D3) 50 mcg (2,000 unit) capsule 50 mcg PO DAILY Qty: 30 5RF Discharge Orders: Discharge Order (Routine); Ordered 06/13/22 Ordered By: Manny Newton Activity on Discharge: No heavy lifting Stand Alone Forms: Patient Portal Discharge page, Community Support Activity Restrictions/Additional Instructions: No tub baths, sex or returning to work until discussed at first post op appointment. No exercise, alcohol, tobacco or illegal drug use. Continue to use incentive spirometer hourly while awake. Walk in home for 5- 10 minutes every 2 hours during the first week. Follow all instructions in the bariatric handbook and call with any questions.Discharge Instructions 1. Please call your doctor or come back to the emergency room should any new symptoms arise. 2. You will receive a courtesy call from [facility] 24-48 hours after discharge. 3. Activity: abstain from alcohol, practice limited stair climbing, no bending, no driving, no exercise, no illicit substances, no lifting, no sex, no tub bath, no work. 4. Diet: continue as discussed with Dr. Newton. 5. Dressing Change/Wound Care: Your incision is covered by clear bandages and guaze underneath. If the area is tender, you may apply an ice pack for short intervals (no more than 20 minutes on, followed by at least 20 minutes off). Do not apply heat. Do not use creams, lotions, or topical antibiotics unless instr ucted to do so by your surgeon. These can cause infection or allergic reaction. 6. Call your doctor if: - Your temperature exceeds 101.5 F - You experience excessive pain or swelling - You have an unexpected reaction to medication - You have excessive bleeding - You experience continued vomiting/nausea - Your incision begins to separate - Your incision shows signs of infection such as increased redness, swelling, excessive pain, heat, or drainage (light blood or clear fluid is normal) 7. General instructions: No lifting greater than 5 lbs for the next 4 weeks. No driving within 24 hours of taking narcotic pain medications. If you do not move your bowels in the next 2 days, please take milk of magnesia over the counter. Please follow the post op diet and do not advance your diet until you are seen in the office in about 2 weeks. Please walk around your home every hour or two to prevent blood clots from forming in your legs. You do not need to wake from sleeping to walk. Please sleep in a bed or couch to prevent kinking at the hips and knees. Please take your incentive spirometer (your lung environmental protection specialist) home with you and use it for the next few days to prevent pneumonias. You may shower, no hot tubs, baths or swimming pools. Please call the office with any questions or concerns such as increasing abdominal pain, fever, chills, shortness of breath, chest pain, leg pain or swelling, or redness or drainage from your incisions. Please stay on stage 3 diet which includes sugar free clear liquids such as ice pops and jello and broth and crystal light. Avoid all carbonation. Please drink 3 protein shakes with at least 25-30 grams of protein daily or 3 of the Celebrate 4:1 shakes which can be purchased in our office. The Celebrate shakes have all of the bariatric vitamins you need if you consume these shakes. If you are drinking other protein shakes, you will need to purchase the Celebrate multivitamins and calcium that we provide in the office (they will provide all the vitamins you need). Please make sure you are consuming at least 40-60 ounces of water in addition to your 3 protein shakes daily. Do not hesitate to contact the office with any questions at . The patient's medical history has been reviewed and they are considered low risk for post op DVT and therefore DVT prophylaxis is not considered necessary. Travel after surgery was reviewed. The patient has not disclosed any travel plans during the first 30 days after surgery and they have been advised that within the first 30 days after surgery any bus, plane, train or car travel over 2 hours in duration is contraindicated due to the possibility of developing blood clots from immobility. Any travel, needs to include periods of ambulation of 10 minutes in duration every 2 hours.? The patient was instructed to discuss any plans for travel during this period with their bariatric surgeon. Care Plan Goals: No tub baths, sex or returning to work until discussed at first post op appointment. No exercise, alcohol, tobacco or illegal drug use. Continue to use incentive spirometer hourly while awake. Walk in home for 5- 10 minutes every 2 hours during the first week. Continue phase 1 diet today and start phase 2 diet tomorrow morning. Follow all instructions in the bariatric handbook and call with any questions. 1. Please call your doctor or come back to the emergency room should any new symptoms arise. 2. You will receive a courtesy call from [facility] 24-48 hours after discharge. 3. Activity: abstain from alcohol, practice limited stair climbing, no bending, no driving, no exercise, no illicit substances, no lifting, no sex, no tub bath, no work. 4. Diet: continue as discussed with bariatric team.. 5. Dressing Change/Wound Care: Do not change or remove surgical dressings unless they are wet or soiled. 6. Call your doctor if: - Your temperature exceeds 101.5 F - You experience excessive pain or swelling - You have an unexpected reaction to medication - You have excessive bleeding - You experience continued vomiting/nausea - Your incision begins to separate - Your incision shows signs of infection such as increased redness, swelling, excessive pain, heat, or drainage (light blood or clear fluid is normal) 7. General instructions: No lifting greater than 5 lbs for the next 4 weeks. No driving within 24 hours of taking narcotic pain medications. If you do not move your bowels in the next 2 days, please take milk of magnesia over the counter. Please follow the post op diet and do not advance your diet until you are seen in the office in about 2 weeks. Please walk around your home every hour or two to prevent blood clots from forming in your legs. You do not need to wake from sleeping to walk. Please sleep in a bed or couch to prevent kinking at the hips and knees. Please take your incentive spirometer (your lung environmental protection specialist) home with you and use it for the next few days to prevent pneumonias. You may shower, no hot tubs, baths or swimming pools. Please call the office with any questions or concerns such as increasing abdominal pain, fever, chills, shortness of breath, chest pain, leg pain or swelling, or redness or drainage from your incisions. Do not hesitate to contact the office with any questions at . The patient's medical history has been reviewed and they are considered low risk for post op DVT and therefore DVT prophylaxis is not considered necessary. Travel after surgery was reviewed. The patient has not disclosed any travel plans during the first 30 days after surgery and they have been advised that within the first 30 days after surgery any bus, plane, train or car travel over 2 hours in duration is contraindicated due to the possibility of developing b lood clots from immobility. Any travel, needs to include periods of ambulation of 10 minutes in duration every 2 hours. The patient was instructed to discuss any plans for travel during this period with their bariatric surgeon. Health Concerns: morbid obesity Plan of Treatment: weight loss, see above Assessment: s/p sleeve gastrectomy, rhabdomyolysis Discharge Date/Time: 06/13/22 22:33
[2022-06-11] MEDS: Lactated Ringers 1,000 ML 100 ML IVCONT (15:36)
[2022-06-11] MEDS: Acetaminophen 1,000 MG/100 ML PIGGYBACK 16.7 MG IV ×2 (15:44→21:58)
[2022-06-11 15:52] LABS: Hematocrit 53.9 % (42.0-52.0); Hemoglobin 18.2 g/dl (14.0-18.0)
[2022-06-11 16:03] LABS: Anion Gap 18 (12-20); Blood Urea Nitrogen 20 mg/dL (9-16); Carbon Dioxide 20 mmol/L (22-29); Chloride 106 mmol/L (96-108); Creatinine Clr Calc Pharmacy 79.9; Estimated Glomerular Filt Rate 46; Glucose Random 151 mg/dL (60-115); Potassium 5.5 mmol/L (3.3-5.1); Sodium 138 mmol/L (135-145)
[2022-06-11] MEDS: fentaNYL citrate/PF 100 MCG/2 ML VIAL 25 MCG IVPUSH ×2 (17:00→17:20)
--- NOTE | 2022-06-11 17:05 | PHA.MEDREC ---
Pharmacy Consult ? Medication Reconciliation Pharmacy has completed the medication reconciliation. Reviewed med rec done by nursing
[2022-06-11] MEDS: 0.9 % Sodium Chloride 1,000 ML 999 ML IV (17:07)
[2022-06-11] MEDS: ceFAZolin Sodium/Dextrose,Iso 2 GM/50 ML PIGGYBACK IV (18:16)
[2022-06-11] MEDS: Famotidine/PF 20 MG/2 ML VIAL IVPUSH (19:32)
[2022-06-11] MEDS: 0.9 % Sodium Chloride Flush 3 ML SYRINGE IVFLUSH (19:32)
[2022-06-11] MEDS: ondansetron HCL 4 MG/2 ML VIAL IVPUSH (19:32)
[2022-06-11] MEDS: HYDROmorphone HCl 0.5 MG/0.5 ML SYRINGE 0.25 MG IVPUSH (19:58)
[2022-06-11 20:14] LABS: Anion Gap 16 (12-20); Blood Urea Nitrogen 18 mg/dL (9-16); Calcium 8.7 mg/dL (8.4-10.2); Carbon Dioxide 19 mmol/L (22-29); Chloride 109 mmol/L (96-108); Creatinine Clr Calc Pharmacy 96.3; Estimated Glomerular Filt Rate 58; Glucose Random 151 mg/dL (60-115); Potassium 4.6 mmol/L (3.3-5.1); Sodium 139 mmol/L (135-145)
[2022-06-11] MEDS: Metoprolol Tartrate 5 MG in 0.9 % Sodium Chloride 50 ML 220 MG IV (20:19)
[2022-06-11 20:38] LABS: Creatinine Urine 110.83 mg/dL
[2022-06-12] VITALS (7 sets, daily range): BP systolic 130–151; BP diastolic 62–90; PULSE 75–106; RESP 16–20; TEMP 36.2–37; O2SAT 94–97
[2022-06-12] MEDS: HYDROmorphone HCl 0.5 MG/0.5 ML SYRINGE 0.25 MG IVPUSH ×4 (00:22→18:40)
[2022-06-12] MEDS: Metoprolol Tartrate 5 MG in 0.9 % Sodium Chloride 50 ML 220 MG IV ×4 (02:07→20:30)
[2022-06-12] MEDS: Acetaminophen 1,000 MG/100 ML PIGGYBACK 16.7 MG IV ×4 (04:18→20:28)
[2022-06-12] MEDS: ondansetron HCL 4 MG/2 ML VIAL IVPUSH ×3 (04:21→20:30)
[2022-06-12 06:40] LABS: MANUAL DIFF FLAG NO
[2022-06-12 06:45] LABS: Basophils Percent Auto 0.1 % (0-2); Hematocrit 48.1 % (42.0-52.0); Hemoglobin 16.5 g/dl (14.0-18.0); Imm Gran Abs Auto 0.08 X10*3/uL (0.00-0.03); Imm Gran Pct Auto 0.7 % (0.0-0.4); Lymphocytes Absolute Auto 1.2 X10*3/uL (1.2-4.9); Lymphocytes Percent Auto 10.4 % (20-40); Mean Corpuscular HGB Conc 34.3 g/dl (31.0-36.0); Mean Corpuscular Hemoglobin 30.4 pg (27.0-33.0); Mean Corpuscular Volume 88.6 fL (80.0-98.0); Monocytes Absolute Auto 0.8 X10*3/uL (0.1-1.2); Monocytes Percent Auto 7.3 % (2-11); Neutrophils Absolute Auto 9.2 x10*3/uL (2.0-8.3); Neutrophils Percent Auto 81.5 % (45-73); Platelet Count 294 X10*3/uL (160-400); Red Blood Count 5.43 X10*6/uL (4.60-5.80); Red Cell Distribution Width 12.4 % (11.0-16.0); White Blood Count 11.3 X10*3/uL (4.8-10.8)
[2022-06-12 07:08] LABS: Anion Gap 13 (12-20); Blood Urea Nitrogen 15 mg/dL (9-16); Calcium 8.6 mg/dL (8.4-10.2); Carbon Dioxide 22 mmol/L (22-29); Chloride 109 mmol/L (96-108); Creatinine Clr Calc Pharmacy 132.5; Estimated Glomerular Filt Rate > 60; Glucose Random 110 mg/dL (60-115); Potassium 4.2 mmol/L (3.3-5.1); Sodium 140 mmol/L (135-145)
[2022-06-12 08:41] LABS: Magnesium 1.9 mg/dL (1.6-2.6); Phosphorus 4.1 mg/dL (2.7-4.5)
[2022-06-12] MEDS: Famotidine/PF 20 MG/2 ML VIAL IVPUSH ×2 (09:10→20:29)
[2022-06-12] MEDS: 0.9 % Sodium Chloride Flush 3 ML SYRINGE IVFLUSH (09:10)
--- NOTE | 2022-06-12 10:16 | PC.NURSE ---
pt verbally okayed for information to be shared with his mother Blank. Contact number is [phone].
--- NOTE | 2022-06-12 10:56 | HO.POSTANES ---
Post Anesthesia Evaluation Post Anesthesia Evaluation Vital Signs: Vital Signs Temp Pulse Resp BP Pulse Ox O2 Del Method 06/12/22 08:48 95 Room Air 06/12/22 07:34 97.8 F 92 18 144/71 H 95 Room Air 06/12/22 02:00 106 H 130/62 95 Room Air 06/12/22 04:00 98.1 F 100 18 147/90 H 97 Room Air 06/11/22 23:40 98.1 F 88 20 137/69 96 CPAP Anesthesia: General Endotracheal-GETA Mental Status: Awake Pain Control: Satisfactory Nausea/Vomiting: None Hydration: Adequate Anesthesia-Related Issues: No Anes. Related Issues Comments: Post-op, patient needed respiratory support with CPAP. In PACU, c/o Pain and redness sole of feet bilaterally at top of sole below toes and also outer sole which is still present. Also c/o swelling, heaviness of left fore-arm and some tingling and numbness of right hand. Patient had large BP cuff on LEFT forearm secondary to size of his arm.On physical exam no swelling appreciated. (Pre-op patient was positioned supine with padded armboards and foot board as well as gel padding and both upper extremities were checked frequently intra-op for proper positioning). Post-op, labs showed rhabdomyolysis with acute kidney injury which has since resolved. Procedure, being a re-do lasted longer than anticipated. That in conjunction with patient's body habitus may be contributing to patient's symptoms. Patient is remaining on admission for further observation.
--- NOTE | 2022-06-12 11:07 | MHC.CM.PN ---
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
[2022-06-12] MEDS: Furosemide 20 MG/2 ML VIAL IVPUSH ×2 (13:45→20:29)
[2022-06-12 19:35] LABS: Anion Gap 11 (12-20); Blood Urea Nitrogen 12 mg/dL (9-16); Calcium 8.8 mg/dL (8.4-10.2); Carbon Dioxide 27 mmol/L (22-29); Chloride 108 mmol/L (96-108); Creatinine Clr Calc Pharmacy 139.2; Estimated Glomerular Filt Rate > 60; Glucose Random 90 mg/dL (60-115); Potassium 3.8 mmol/L (3.3-5.1); Sodium 142 mmol/L (135-145)
[2022-06-12] MEDS: diphenhydrAMINE HCL 50 MG/ML VIAL 25 MG IVPUSH (21:50)
[2022-06-13] MEDS: Acetaminophen 1,000 MG/100 ML PIGGYBACK 16.7 MG IV ×4 (02:00→22:14)
[2022-06-13] MEDS: Metoprolol Tartrate 5 MG in 0.9 % Sodium Chloride 50 ML 220 MG IV ×2 (02:01→08:41)
[2022-06-13 02:50] VITALS: BP 133/65; PULSE 68; RESP 16; TEMP 36.3; O2SAT 98
[2022-06-13 06:42] LABS: MANUAL DIFF FLAG NO
[2022-06-13 06:46] LABS: Basophils Absolute Auto 0.1 X10*3/uL (0.0-0.2); Basophils Percent Auto 0.6 % (0-2); Eosinophils Absolute Auto 0.1 X10*3/uL (0.0-0.4); Eosinophils Percent Auto 0.8 % (0-4); Hemoglobin 16.9 g/dl (14.0-18.0); Imm Gran Abs Auto 0.07 X10*3/uL (0.00-0.03); Imm Gran Pct Auto 0.7 % (0.0-0.4); Lymphocytes Absolute Auto 2.9 X10*3/uL (1.2-4.9); Lymphocytes Percent Auto 28.8 % (20-40); Mean Corpuscular HGB Conc 33.1 g/dl (31.0-36.0); Mean Corpuscular Hemoglobin 29.5 pg (27.0-33.0); Mean Platelet Volume 9.2 fL (9.4-12.4); Monocytes Absolute Auto 0.8 X10*3/uL (0.1-1.2); Monocytes Percent Auto 7.4 % (2-11); Neutrophils Absolute Auto 6.2 x10*3/uL (2.0-8.3); Neutrophils Percent Auto 61.7 % (45-73); Platelet Count 272 X10*3/uL (160-400); Red Blood Count 5.73 X10*6/uL (4.60-5.80); Red Cell Distribution Width 12.6 % (11.0-16.0); White Blood Count 10.1 X10*3/uL (4.8-10.8)
[2022-06-13 07:00] VITALS: BP 114/57; PULSE 64; RESP 18; TEMP 36.1; O2SAT 95
[2022-06-13 07:09] LABS: Alanine Aminotransferase 126 U/L (0-40); Albumin Level 3.5 g/dL (3.5-5.0); Alkaline Phosphatase 46 U/L (39-117); Anion Gap 15 (12-20); Aspartate Amino Transferase 209 U/L (5-37); Bilirubin Total 0.8 mg/dL (0.0-1.0); Blood Urea Nitrogen 13 mg/dL (9-16); Calcium 8.7 mg/dL (8.4-10.2); Carbon Dioxide 26 mmol/L (22-29); Chloride 106 mmol/L (96-108); Creatinine Clr Calc Pharmacy 127.6; Estimated Glomerular Filt Rate > 60; Glucose Random 75 mg/dL (60-115); Sodium 143 mmol/L (135-145); Total Protein 5.8 g/dL (6.5-8.0)
[2022-06-13 08:00] VITALS: O2SAT 95
[2022-06-13] MEDS: HYDROmorphone HCl 0.5 MG/0.5 ML SYRINGE 0.25 MG IVPUSH (08:35)
[2022-06-13] MEDS: Famotidine/PF 20 MG/2 ML VIAL IVPUSH ×2 (08:42→21:29)
--- NOTE | 2022-06-13 09:44 | PM.PNGS ---
Subjective Subjective Date of Service: 06/13/22 Interval history: 32 yo man who is 2 d post op revision of previous LSG. Surgery was complicated by extensive intrabdominal adhesions and was about 6.5 hours in duration. Patient developed MARIA L and rhabdomyolysis which have now improved with IVF and bicarb. He had increased urination overnight after second dose of furosemide. Patient has no n/v/abd pain or reflux, and is tolerating phase 1 bariatric diet. He continues to state that he has pain in LE B - on soles and lateral edges of feet. He was able to ambulate with a walker last night. He states that he has decreased sensation in both arms below the elbows, L>R. Has minimal function of fingers in both hands and has altered pins and needles in both UE below the elbows. Physical Exam Vital Signs: Vital Signs: Last Vital Signs Temp 96.9 F 06/13/22 07:00 Pulse 64 06/13/22 07:00 Resp 18 06/13/22 07:00 BP 114/57 L 06/13/22 07:00 Pulse Ox 95 06/13/22 08:00 O2 Del Method Room Air 06/13/22 08:00 O2 Flow Rate 3 06/11/22 17:35 FiO2 30 06/11/22 15:40 BMI result Body Mass Index 41.8 Const: Other: Patient lying comfortably in bed with both arms elevated. General: cooperative, healthy appearing and no acute distress Orientation/consciousness: patient oriented x3 GI: Inspection: Yes incision (all surgical dressing c/d/i) Palpation (GI): Soft to palpation, nontender, no guarding and not rigid Percussion: Yes normal to percussion Neuro: Other: L UE - paresthesias below elbow. Can wiggle his fingers, tool turret lathe set up operator strength diminished R UE - paresthesia below elbow, absent tool turret lathe set up operator strength in hand. General: patient oriented x3 Cognition (Neuro): normal cognition Motor exam (neuro): Abnormal motor strength present (R hand- 1/5, L hand 0/5) Sensory Exam: Sensory deficit (Neuro) (LE B - soles and lateral edge feet. UE's see above) Objective Data Active Medications Famotidine (Famotidine/Pf 20 Mg/2 Ml Vial) 20 mg IVPUSH BID [facility] Last Admin: 06/13/22 08:42 Dose: 20 mg Documented By: LUIS Fentanyl (Fentanyl Citrate/Pf 100 Mcg/2 Ml Vial) 25 mcg IVPUSH Q5M PRN; Protocol PRN Reason: Pain, Moderate (Pain Scale 4-6 Last Admin: 06/11/22 17:20 Dose: 25 mcg Documented By: MIKE Hydromorphone HCl (Hydromorphone Hcl 0.5 Mg/0.5 Ml Syringe) 0.25 mg IVPUSH Q4H PRN; Protocol PRN Reason: Pain, Moderate (Pain Scale 4-6 Last Admin: 06/13/22 08:35 Dose: 0.25 mg Documented By: LUIS Promethazine HCl 6.25 mg/ (Sodium Chloride) 50.25 mls @ 201 mls/hr IV ONCE PRN PRN Reason: Nausea and Vomiting Acetaminophen (Ofirmev) 1,000 mg in 100 mls @ 16.7 mls/hr IV .Q6H [facility] Last Admin: 06/13/22 08:41 Dose: 16.7 mls/hr Documented By: LUIS Metoclopramide HCl (Metoclopramide Hcl 10 Mg/2 Ml Vial) 10 mg IVPUSH Q6H PRN PRN Reason: Nausea Ondansetron HCl (Ondansetron Hcl 4 Mg/2 Ml Vial) 4 mg IVPUSH ONCE PRN PRN Reason: Nausea and Vomiting Ondansetron HCl (Ondansetron Hcl 4 Mg/2 Ml Vial) 4 mg IVPUSH Q8H [facility] Last Admin: 06/13/22 02:43 Dose: Not Given Documented By: BLAKE Non-Admin Reason: Patient Asleep Sodium Chloride (0.9 % Sodium Chloride Flush 3 Ml Syringe) 3 ml IVFLUSH QSHIFT [facility] Last Admin: 06/13/22 09:21 Dose: Not Given Documented By: LUIS Non-Admin Reason: IV Running Labs 06/13/22 05:46 06/13/22 05:46 Labs: Laboratory Results - last 24 hr 06/12/22 06/12/22 06/13/22 18:55 18:55 05:46 MCV MCH MCHC RDW Plt Count MPV Immature Gran % (Auto) Neut % (Auto) Lymph % (Auto) [place] % (Auto) Eos % (Auto) Baso % (Auto) Lymph # (Auto) [place] # (Auto) Eos # (Auto) Baso # (Auto) Abs Immat Gran (auto) Absolute Neuts (auto) Absolute Nucleated RBC Nucleated RBC % (auto) Anion Gap 11 L Cancelled 15 Estim Creat Clear Calc 139.2 Cancelled 127.6 Estimated GFR > 60 Cancelled > 60 Random Glucose 90 Cancelled 75 Calcium 8.8 Cancelled 8.7 Total Bilirubin 0.8 AST 209 H ALT 126 H Alkaline Phosphatase 46 Total Creatine Kinase 60377 H Total Protein 5.8 L Albumin 3.5 06/13/22 06/13/22 05:46 05:47 MCV 89.0 MCH 29.5 MCHC 33.1 RDW 12.6 Plt Count 272 MPV 9.2 L Immature Gran % (Auto) 0.7 H Neut % (Auto) 61.7 Lymph % (Auto) 28.8 [place] % (Auto) 7.4 Eos % (Auto) 0.8 Baso % (Auto) 0.6 Lymph # (Auto) 2.9 [place] # (Auto) 0.8 Eos # (Auto) 0.1 Baso # (Auto) 0.1 Abs Immat Gran (auto) 0.07 H Absolute Neuts (auto) 6.2 Absolute Nucleated RBC 0.000 Nucleated RBC % (auto) 0.0 Anion Gap Estim Creat Clear Calc Estimated GFR Random Glucose Calcium Total Bilirubin AST ALT Alkaline Phosphatase Total Creatine Kinase 7301 H Total Protein Albumin Imaging Venous US: Attestation: I personally reviewed and interpreted this imaging study as follows: (Studies have not been read yet, done this am. ) Procedures Date of Service Date of Service: 06/13/22 Progress Note: A&P Assessment and plan (1) S/P laparoscopic sleeve gastrectomy: Status: Acute Assessment and Plan: POD # 2 s/p revision of laparoscopic sleeve gastrectomy. No issues from GI persppective. Pt will advance to bariatric phase 3 diet - will have bring Celebrate 4:1 powder to hospital today and will have 1 scoop mixed with 8 oz of skim milk to drink 1 oz every 15 minutes. IVF and metoprolol have been discontinued. All aspects of case have been discussed with Dr Newton, attending surgeon. (2) Rhabdomyolysis: Status: Acute Assessment and Plan: Improved. CK halved overnight. Patient continues to have loss of function and sensation in UE and LE bilaterally. neurology Dr Ndiaye and Dr Cardoso from vascular surgery have each been consulted. Concern for compartment syndrome UE dopplers done this am, no report yet. (3) Acute kidney injury: Status: Acute Assessment and Plan: Resolved (4) Paresthesia: Status: Acute Assessment and Plan: Of UE > LE bilaterally. Neurology and Vascular surgery have been consulted to evbaluate for etiology (compartment syndrome?) and treatment. Time Spent With Patient Time: Total time managing care of this patient today 45 _ minutes. Quality Stroke Does the patient have a stroke diagnosis?: No VTE Prior VTE?: No VTE Risk Level:: Surgical - moderate VTE Device Contraindication: N/A - Device Ordered VTE Drug Contraindication: Treatment Not Indicated
--- NOTE | 2022-06-13 10:15 | PM.NEUROCN ---
History of Present Illness Data of Consult Service Date: 06/13/22 Primary Care Provider: Sirisha Reyes MD [facility] Reason for consult: Paresthesias 32 years old man who had an abdominal surgery recently which lasted for more than 6 hours due to abdominal adhesions. After that he was noted to be in rhabdomyolysis and is being treated for that. He started complaining of discomfort in is in hands and feet and this consultation was requested. There was no change in speech or swallowing. He was afebrile. Review of Systems Review of Systems: No recent cold or flu-like illness PMFSH Past Medical History Medical History Sleep apnea Family History Family History Mother Arthritis Fibromyalgia Father No problems noted. Sister No problems noted. Son No problems noted. Son Asthma Surgical History Surgical History Hx of bariatric surgery Hx of knee surgery Social History Social History Household Members: Spouse Housing: House Are you a primary home health care case manager to a significant other at home: No Do you presently have visiting nurse or other home services: No Alcohol intake: current Alcohol intake frequency: does not drink Patient Tobacco Use Status: Never used Tobacco Use of substances other than those prescribed or required for medical reasons: No Currently Displaying Signs/Symptoms of Drug Intoxication Withdrawal: No Have you been hit, kicked, punched, or otherwise hurt by someone within the past year? If so, by whom?: No Do you feel safe in your current relationship?: Yes Is there a partner from a previous relationship who is making you feel unsafe now?: No Are you made to feel afraid or neglected: No Are you DNR?: No Advance Directives: No Advance Directives Information Provided: Yes Advance Directives on File: No Do you have thoughts of harming others: None Do you have a plan to hurt others: No Plan Recently lost weight without trying: No How much weight loss: Not applicable Eating poorly because of decreased appetite: No Nutrition screen score: 0 Nutrition Risks: No Nutritional Risk Poor oral hygiene: No service: No Current occupational status: employed 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 Allergies Allergy/AdvReac Type Severity Reaction Status Date / Time No Known Allergies Allergy Verified 06/05/22 12:03 Active Medications: Current Medications Famotidine (Famotidine/Pf 20 Mg/2 Ml Vial) 20 mg IVPUSH BID [facility] Last Admin: 06/13/22 08:42 Dose: 20 mg Fentanyl (Fentanyl Citrate/Pf 100 Mcg/2 Ml Vial) 25 mcg IVPUSH Q5M PRN; Protocol PRN Reason: Pain, Moderate (Pain Scale 4-6 Last Admin: 06/11/22 17:20 Dose: 25 mcg Hydromorphone HCl (Hydromorphone Hcl 0.5 Mg/0.5 Ml Syringe) 0.25 mg IVPUSH Q4H PRN; Protocol PRN Reason: Pain, Moderate (Pain Scale 4-6 Last Admin: 06/13/22 08:35 Dose: 0.25 mg Promethazine HCl 6.25 mg/ (Sodium Chloride) 50.25 mls @ 201 mls/hr IV ONCE PRN PRN Reason: Nausea and Vomiting Acetaminophen (Ofirmev) 1,000 mg in 100 mls @ 16.7 mls/hr IV .Q6H [facility] Last Admin: 06/13/22 08:41 Dose: 16.7 mls/hr Metoclopramide HCl (Metoclopramide Hcl 10 Mg/2 Ml Vial) 10 mg IVPUSH Q6H PRN PRN Reason: Nausea Ondansetron HCl (Ondansetron Hcl 4 Mg/2 Ml Vial) 4 mg IVPUSH ONCE PRN PRN Reason: Nausea and Vomiting Ondansetron HCl (Ondansetron Hcl 4 Mg/2 Ml Vial) 4 mg IVPUSH Q8H [facility] Last Admin: 06/13/22 02:43 Dose: Not Given Sodium Chloride (0.9 % Sodium Chloride Flush 3 Ml Syringe) 3 ml IVFLUSH QSHIFT [facility] Last Admin: 06/13/22 09:21 Dose: Not Given Physical Exam Vital Signs: Vital Signs: Last Vital Signs Temp 96.9 F 06/13/22 07:00 Pulse 64 06/13/22 07:00 Resp 18 06/13/22 07:00 BP 114/57 L 06/13/22 07:00 Pulse Ox 95 06/13/22 08:00 O2 Del Method Room Air 06/13/22 08:00 O2 Flow Rate 3 06/11/22 17:35 FiO2 30 06/11/22 15:40 BMI result Body Mass Index 41.8 Neuro: Other: he is alert and awake with normal spontaneity of speech fluency comprehension and affect. Face is symmetrical. There is no ptosis. Tongue is midline. He is morbidly obese. Exam is somewhat limited because of recent surgery in discomfort. He is able to open and close his hands move his legs and wiggle his toes. Deep tendon reflexes are absent with flat plantars. Feet are sensitive to touch. Speech is normal. Results Labs 06/13/22 05:46 06/13/22 05:46 Labs: Short CBC 06/13/22 Range/Units 05:46 WBC 10.1 (4.8-10.8) X10*3/uL Hgb 16.9 (14.0-18.0) g/dl Hct 51.0 (42.0-52.0) % Plt Count 272 (160-400) X10*3/uL BMP 06/12/22 06/12/22 06/13/22 18:55 18:55 05:46 Sodium 142 Cancelled 143 Potassium 3.8 Cancelled 4.0 Chloride 108 Cancelled 106 Carbon Dioxide 27 Cancelled 26 BUN 12 Cancelled 13 Creatinine 0.99 Cancelled 1.08 Calcium 8.8 Cancelled 8.7 Cardiac Enzymes 06/12/22 06/13/22 Range/Units 18:55 05:47 Total Creatine Kinase 33170 H 7301 H (38-174) U/L Liver Function 06/13/22 Range/Units 05:46 Total Bilirubin 0.8 (0.0-1.0) mg/dL AST 209 H (5-37) U/L ALT 126 H (0-40) U/L Alkaline Phosphatase 46 (39-117) U/L Albumin 3.5 (3.5-5.0) g/dL Assessment and Plan (1) Rhabdomyolysis: Status: Acute 32 years old man with postoperative rhabdomyolysis likely related to prolonged surgery. his overall symptomatology is not unusual for this diagnosis. Acute demyelinatingneuropathy would be another consideration but seems like an unlikely diagnosis because of short duration. My recommendation is to continue treatment for rhabdomyolysis with the PT OT involvement. Reassurance and education was needed tonight talked to the patient reassuring him that he should get better but in few days to weeks time. if symptoms persist or worsen, an EMG nerve conduction study can be considered for evaluation. Time Spent With Patient Time: Total time managing care of this patient today ____ minutes. Procedures Date of Service Date of Service: 06/13/22
--- NOTE | 2022-06-13 13:22 | PM.CNGS ---
History of Present Illness Consult details Consult date: 06/13/22 Reason for consult: other (Rule out compartment syndrome) Narrative: 32-year-old gentleman presents for evaluation regarding compartment syndrome. He underwent laparoscopic sleeve gastrectomy on 06/11/2022. There was prolonged operative time of nearly 7 hours with total intraoperative fluids nearly 4000 mL. He reported swelling and discomfort bilateral upper and lower extremities. He did note some paresthesias of the upper extremity right greater than left. Vascular surgery consult was placed. Upon discussion with him he reports that in general he is feeling significantly better. His discomfort has significantly decreased in he only has some mild discomfort in the left upper extremity now. Also of note he is a nonsmoker nondiabetic. Denies any family history advanced peripheral vascular disease or coronary artery disease. Now for vascular evaluation. Review of Systems Review of Systems: Yes all other systems are reviewed and are negative Constitutional: Constitutional: Reports no additional constitutional complaints ENT: Reports Normal hearing present Cardiovascular: Cardiovascular: Denies chest pain, Denies chest pain at rest, Denies chest pain with activity and Denies pedal edema Respiratory: Respiratory: Denies cough Gastrointestinal: Gastrointestinal: Denies abdominal pain Musculoskeletal: Musculoskeletal: Denies abnormal gait, Denies muscle cramps and Denies radiating pain into limb Integumentary/Breasts: Skin/Breast: Denies skin ulcer and Denies wounds Neurologic: Reports Normal hearing present and Denies abnormal gait Psychiatric: Psychiatric: Reports no additional psychiatric complaints PMFSH Past Medical History Medical History Sleep apnea Family History Family History Mother Arthritis Fibromyalgia Father No problems noted. Sister No problems noted. Son No problems noted. Son Asthma Surgical History Surgical History Hx of bariatric surgery Hx of knee surgery Social History Social History Household Members: Spouse Housing: House Are you a primary early breastfeeding care specialist to a significant other at home: No Do you presently have visiting nurse or other home services: No Alcohol intake: current Alcohol intake frequency: does not drink Patient Tobacco Use Status: Never used Tobacco Use of substances other than those prescribed or required for medical reasons: No Currently Displaying Signs/Symptoms of Drug Intoxication Withdrawal: No Have you been hit, kicked, punched, or otherwise hurt by someone within the past year? If so, by whom?: No Do you feel safe in your current relationship?: Yes Is there a partner from a previous relationship who is making you feel unsafe now?: No Are you made to feel afraid or neglected: No Are you DNR?: No Advance Directives: No Advance Directives Information Provided: Yes Advance Directives on File: No Do you have thoughts of harming others: None Do you have a plan to hurt others: No Plan Recently lost weight without trying: No How much weight loss: Not applicable Eating poorly because of decreased appetite: No Nutrition screen score: 0 Nutrition Risks: No Nutritional Risk Poor oral hygiene: No service: No Current occupational status: employed 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 Allergy/AdvReac Type Severity Reaction Status Date / Time No Known Allergies Allergy Verified 06/05/22 12:03 Active Medications: Current Medications Famotidine (Famotidine/Pf 20 Mg/2 Ml Vial) 20 mg IVPUSH BID [facility] Last Admin: 06/13/22 08:42 Dose: 20 mg Fentanyl (Fentanyl Citrate/Pf 100 Mcg/2 Ml Vial) 25 mcg IVPUSH Q5M PRN; Protocol PRN Reason: Pain, Moderate (Pain Scale 4-6 Last Admin: 06/11/22 17:20 Dose: 25 mcg Hydromorphone HCl (Hydromorphone Hcl 0.5 Mg/0.5 Ml Syringe) 0.25 mg IVPUSH Q4H PRN; Protocol PRN Reason: Pain, Moderate (Pain Scale 4-6 Last Admin: 06/13/22 08:35 Dose: 0.25 mg Promethazine HCl 6.25 mg/ (Sodium Chloride) 50.25 mls @ 201 mls/hr IV ONCE PRN PRN Reason: Nausea and Vomiting Acetaminophen (Ofirmev) 1,000 mg in 100 mls @ 16.7 mls/hr IV .Q6H [facility] Last Admin: 06/13/22 08:41 Dose: 16.7 mls/hr Metoclopramide HCl (Metoclopramide Hcl 10 Mg/2 Ml Vial) 10 mg IVPUSH Q6H PRN PRN Reason: Nausea Ondansetron HCl (Ondansetron Hcl 4 Mg/2 Ml Vial) 4 mg IVPUSH ONCE PRN PRN Reason: Nausea and Vomiting Ondansetron HCl (Ondansetron Hcl 4 Mg/2 Ml Vial) 4 mg IVPUSH Q8H [facility] Last Admin: 06/13/22 13:17 Dose: Not Given Sodium Chloride (0.9 % Sodium Chloride Flush 3 Ml Syringe) 3 ml IVFLUSH QSHIFT [facility] Last Admin: 06/13/22 09:21 Dose: Not Given Physical Exam Vital Signs: Vital Signs: Last Vital Signs Temp 96.9 F 06/13/22 07:00 Pulse 64 06/13/22 07:00 Resp 18 06/13/22 07:00 BP 114/57 L 06/13/22 07:00 Pulse Ox 95 06/13/22 08:00 O2 Del Method Room Air 06/13/22 08:00 O2 Flow Rate 3 06/11/22 17:35 FiO2 30 06/11/22 15:40 BMI result Body Mass Index 41.8 Const: General: cooperative, healthy appearing and comfortable Orientation/consciousness: oriented to person, oriented to place and oriented to time HEENT: Head: Yes normal to inspection Neck: Neck: Yes normal visual inspection Carotids: no bruits Chest: Chest palpation & inspection: normal inspection of the chest Resp: Effort & Inspection: normal respiratory effort and able to speak in complete sentences Auscultation: clear to auscultation bilaterally, no crackles, no rales, no rhonchi and no wheezes Cardio: Other: Bilateral upper extremities palpable brachial radial and ulnar pulses Bilateral lower extremities palpable dorsalis pedis and posterior tibial pulses Rate: regular rate Rhythm: regular rhythm Heart sounds: S1 normal heart sound present and S2 normal heart sound present Bruits: no carotid bruits Peripheral pulses: Peripheral pulses 2+ throughout GI: Inspection: Yes normal to inspection Skin: Other: Abdomen soft - no rebound no guarding, port sites appear to be healing well Wounds: no wounds Hair: normal Neuro: General: oriented to person, oriented to place and oriented to time Cranial nerves: Yes CN's II-XII intact bilaterally and Yes Normal hearing present Cognition (Neuro): normal cognition Motor exam (neuro): 5/5 motor strength present throughout Extrem: Other: +1 generalized edema. Extremities motor and sensation intact with all extremities. All compartments are soft. Range of motion is intact. Strength right upper extremity 5/5, left upper extremity 4/ 5 General: No clubbing, No cyanosis and No edema Psych: Appearance: grossly normal Mental Status: mental status grossly normal Speech and movement: Normal speech and movement present Results Labs 06/13/22 05:46 06/13/22 05:46 Labs: Abnormal lab results 06/12/22 06/13/22 06/13/22 Range/Units 18:55 05:46 05:46 MPV 9.2 L (9.4-12.4) fL Immature Gran % (Auto) 0.7 H (0.0-0.4) % Abs Immat Gran (auto) 0.07 H (0.00-0.03) X10*3/uL Anion Gap 11 L (12-20) AST 209 H (5-37) U/L ALT 126 H (0-40) U/L Total Creatine Kinase 12611 H (38-174) U/L Total Protein 5.8 L (6.5-8.0) g/dL 06/13/22 Range/Units 05:47 MPV (9.4-12.4) fL Immature Gran % (Auto) (0.0-0.4) % Abs Immat Gran (auto) (0.00-0.03) X10*3/uL Anion Gap (12-20) AST (5-37) U/L ALT (0-40) U/L Total Creatine Kinase 7301 H (38-174) U/L Total Protein (6.5-8.0) g/dL Short CBC 06/13/22 Range/Units 05:46 WBC 10.1 (4.8-10.8) X10*3/uL Hgb 16.9 (14.0-18.0) g/dl Hct 51.0 (42.0-52.0) % Plt Count 272 (160-400) X10*3/uL BMP 06/12/22 06/12/22 06/13/22 18:55 18:55 05:46 Sodium 142 Cancelled 143 Potassium 3.8 Cancelled 4.0 Chloride 108 Cancelled 106 Carbon Dioxide 27 Cancelled 26 BUN 12 Cancelled 13 Creatinine 0.99 Cancelled 1.08 Calcium 8.8 Cancelled 8.7 Cardiac Enzymes 06/12/22 06/13/22 Range/Units 18:55 05:47 Total Creatine Kinase 86192 H 7301 H (38-174) U/L Liver Function 06/13/22 Range/Units 05:46 Total Bilirubin 0.8 (0.0-1.0) mg/dL AST 209 H (5-37) U/L ALT 126 H (0-40) U/L Alkaline Phosphatase 46 (39-117) U/L Albumin 3.5 (3.5-5.0) g/dL Urine 06/11/22 Range/Units 20:05 Ur Specific [place] 1.020 (1.005-1.025) All other labs normal. Imaging Additional studies: Upper extremity arterial ultrasound negative for any significant stenosis or disease. Assessment and Plan (1) Paresthesia: Status: Acute Plan In short the patient is experiencing upper extremity paresthesia. This may be secondary to prolonged operative time and positioning. His CK is trending down nicely was as high as 14,000 now down to 7000. I did visualize the urine which appears to be vera yellow with no evidence of myoglobinuria. All compartments are clinically soft and he does have motor and sensation intact. There is no evidence of compartment syndrome. I do believe he continues to progress well. Would recommend strict I&O, continued trending of CK, early ambulation and range of motion as tolerated. Renal function appears to have normalized, but would minimize use of diuretics. We will follow with you on an as-needed basis. Thank you for allowing us to participate in his care. If there are any questions or concerns please do not hesitate to contact us. The patient had an opportunity to ask questions regarding the treatment plan. All questions were answered. Imaging studies, laboratory studies and physical exam results were discussed and reviewed in detail. No major barriers to understanding were identified. The patient expressed understanding and agreement with the above treatment plan. This note is constructed using voice recognition software. While every effort has been made to ensure accuracy, tear down worker errors may have been included. Thank you for allowing me to participate in the care of your patient. Yours sincerely, Ananda Cardoso MD, FACS, R.P.V.Saritha Au text was sent to Dr. Newton at 01:14 on 06/13/2022. Time Spent With Patient Time: Total time managing care of this patient today _60___ minutes. Evaluation of study, including direct visualization of images, review of all data and chart, and direct patient contact Procedures Date of Service Date of Service: 06/13/22
[2022-06-13 15:00] VITALS: BP 143/63; PULSE 81; RESP 18; TEMP 36.9; O2SAT 97
[2022-06-13] MEDS: ondansetron HCL 4 MG/2 ML VIAL IVPUSH ×2 (16:07→21:30)
[2022-06-13] MEDS: 0.9 % Sodium Chloride Flush 3 ML SYRINGE IVFLUSH ×2 (16:12→21:30)
[2022-06-13 19:00] VITALS: BP 159/82; PULSE 68; RESP 16; TEMP 36.8; O2SAT 99
--- NOTE | 2022-06-13 23:19 | PC.NURSE ---
Addendum entered by Rachel Starks RN 06/13/22 23:30: IV lines removed with cannulas intact prior to pt's discharge. Original Note: Pt has an order for Discharge seen at 2100, pt is alert and oriented with no c/o pain, discharge instructions and pertinent papers given to pt and signed, Lithographic Press Operator informed of need for ride home, ride home was booked, pt was accompanied on a wheelchair by staff off unit to his ride at 2328.
[2022-06-17 21:09] LABS: CK-BB None Detected (None Detected); CK-MB 0 % (<5); CK-MM 100 % (95-100); Creatine Kinase,Total,Serum 7810 U/L (44-196)
== END 2022-06-13 22:33 | disposition home or self-care (01) | DRG 620 ==
LOC: HO.S3 17:00
PROVIDERS: Physician Assistant; Physician Assistant Surgical; Admitting Provider Surgery; PCP Internal Medicine; Visit Provider Surgery
PROC: 0DB64Z3 Excision of Stomach, Percutaneous Endoscopic Approach, Vertical (ICD-10-PCS; principal; 2022-06-11 07:30)
DX: E66.01 Morbid (severe) obesity due to excess calories (principal); M62.82 Rhabdomyolysis; N17.9 Acute kidney failure, unspecified; G47.33 Obstructive sleep apnea (adult) (pediatric); R20.2 Paresthesia of skin; K76.0 Fatty (change of) liver, not elsewhere classified; K66.0 Peritoneal adhesions (postprocedural) (postinfection); Z68.41 Body mass index [BMI] 40.0-44.9, adult; Z20.822 Contact with and (suspected) exposure to COVID-19; Z98.84 Bariatric surgery status; Z79.899 Other long term (current) drug therapy
CPT/HCPCS: 36415; 73200; 80048; 80053; 82550; 82552; 83735; 84100; 84300; 85014; 85018; 85025; 86850; 86900; 86901; 87635; 88307; 88342; 93930; 93970; 94660; A4649; C9088; C9145; J0131; J0690; J1100; J1170; J1200; J1940; J2250; J2405; J2795; J3010

== ENCOUNTER 2022-06-15 15:58 | Outpatient (REF) | payer OTHER, SELFPAY ==
[2022-06-15 16:21] LABS: MANUAL DIFF FLAG NO
[2022-06-15 17:10] LABS: Basophils Percent Auto 0.4 % (0-2); Eosinophils Absolute Auto 0.2 X10*3/uL (0.0-0.4); Eosinophils Percent Auto 2.2 % (0-4); Hematocrit 52.3 % (42.0-52.0); Imm Gran Abs Auto 0.08 X10*3/uL (0.00-0.03); Imm Gran Pct Auto 0.8 % (0.0-0.4); Lymphocytes Absolute Auto 2.1 X10*3/uL (1.2-4.9); Lymphocytes Percent Auto 22.2 % (20-40); Mean Corpuscular HGB Conc 34.4 g/dl (31.0-36.0); Mean Corpuscular Hemoglobin 29.9 pg (27.0-33.0); Mean Corpuscular Volume 86.9 fL (80.0-98.0); Mean Platelet Volume 9.3 fL (9.4-12.4); Monocytes Absolute Auto 0.5 X10*3/uL (0.1-1.2); Monocytes Percent Auto 5.4 % (2-11); Neutrophils Absolute Auto 6.7 x10*3/uL (2.0-8.3); Platelet Count 334 X10*3/uL (160-400); Red Blood Count 6.02 X10*6/uL (4.60-5.80); Red Cell Distribution Width 12.1 % (11.0-16.0); White Blood Count 9.6 X10*3/uL (4.8-10.8)
== END 2022-06-15 15:59 | disposition home or self-care (01) ==
LOC: HO.LAB 15:58
PROVIDERS: PCP Internal Medicine; Visit Provider Physician Assistant
DX: M62.82 Rhabdomyolysis (principal); K62.5 Hemorrhage of anus and rectum; Z98.84 Bariatric surgery status; Z90.3 Acquired absence of stomach [part of]
CPT/HCPCS: 36415; 85025

== ENCOUNTER → 2022-06-16 10:23 | Outpatient (BNVA) | payer OTHER, SELFPAY | PROVIDERS: PCP Internal Medicine; Visit Provider Physician Assistant Surgical | DX: Z13.89 Encounter for screening for other disorder (principal) ==

== ENCOUNTER 2022-06-19 09:18 | Outpatient (REF) | payer OTHER, SELFPAY ==
--- NOTE | ~2022-06-19 | MR_ITS ---
EXAMINATION: MR CERVICAL SPINE WITHOUT CONTRAST CLINICAL INFORMATION: Question syringomyelia. Bilateral upper extremity paresthesias and weakness in hands and arms. COMPARISON: No relevant prior imaging. TECHNIQUE: MRI of the cervical spine was obtained using routine sequences without contrast. FINDINGS: Alignment is normal. Vertebral heights are preserved. There is diffuse reduction of bone marrow signal intensity on the T1 sequence. Intervertebral disc heights are grossly maintained in all levels. Annular contours are normal and there is no canal compromise. No cord compression or abnormal intramedullary signal changes. Specifically no syringomyelia. The cervicomedullary junction is normal. Limited visualization of the posterior fossa reveals no abnormal 5. There is uncovertebral joint spurring causing mild left neuroforaminal encroachment at C4-C5 and C5-C6. Visualized soft tissues of the neck are normal. Vascular flow voids are maintained. MR/MR cervical spine wo con IMPRESSION: There is diffuse reduction of bone marrow signal intensity on the T1 sequence. Although this finding can be seen in setting of anemia, the possibility of other infiltrative bone marrow processes cannot be excluded. Asymmetric uncovertebral joint spurring causing mild left neuroforaminal encroachment at C4-C5 and C5-C6. Otherwise unremarkable examination. No canal compromise or cord compression. No abnormal intramedullary signal changes. Specifically no syringomyelia.
== END 2022-06-19 09:19 | disposition home or self-care (01) ==
LOC: HO.MRI 09:18
PROVIDERS: PCP Internal Medicine; Visit Provider Physician Assistant Surgical
DX: R20.2 Paresthesia of skin (principal)
CPT/HCPCS: 72141

== ENCOUNTER 2022-06-21 11:33 | Emergency (ER) | payer OTHER, SELFPAY ==
--- NOTE | ~2022-06-21 | MR_ITS ---
EXAMINATION: MR FOREARM WITHOUT CONTRAST, LEFT CLINICAL INFORMATION: Pain and numbness. COMPARISON: Left forearm CT dated 06/13/2022. TECHNIQUE: Multisequence MR imaging of the left forearm was obtained without contrast on a high-field strength scanner. FINDINGS: BONE: No abnormal marrow signal. MUSCLES/TENDONS: There is somewhat geographic, lobulated heterogeneity involving the distal brachialis muscle measuring approximately 3.1 x 5.4 x 3.7 cm and extending to the tendon insertion, correlating to the prior CT findings. This demonstrates heterogeneous increased T2 signal with additional more mild increased T2 signal extending proximally within the brachialis muscle belly as well as distally within the flexor compartment musculature. Findings are nonspecific and could represent a focal myositis. An infectious or inflammatory etiology could be considered. No measurable tear or tendon retraction. LIGAMENTS: The ulnar and radial collateral ligaments are intact. SOFT TISSUES: Dorsal subcutaneous edema. No soft tissue mass or organized fluid collection. No significant joint effusion. MR/MR forearm LT wo con IMPRESSION: 1. Heterogeneous, lobulated signal involving the distal brachialis muscle extending to the tendon insertion, correlating to the prior CT findings. Findings are nonspecific and could represent a focal myositis. An infectious or inflammatory radiology could be considered in the appropriate clinical setting. No measurable tear or tendon retraction. 2. Dorsal subcutaneous edema.
--- NOTE | ~2022-06-21 | CT_ITS ---
EXAMINATION: CT HEAD WITHOUT CONTRAST CLINICAL INFORMATION: Left arm weakness and numbness since 06/11/2022. Recent gastric bypass surgery. COMPARISON: None available. TECHNIQUE: Contiguous axial imaging was performed from the skull base to vertex without intravenous administration of contrast. This CT examination was performed using dose optimization techniques as appropriate, variously including the following: *Automated exposure control *Adjustment of mA and/or kV according to patient size (this includes techniques or standardized protocols for targeted exams where dose is matched to indication/reason for exam; i.e. extremities or head) *Use of iterative reconstruction technique DLP: 835 mGy-cm FINDINGS: No acute intracranial hemorrhage. No mass effect or midline shift. No parenchymal lesion. The mayo-white differentiation is maintained. No extra-axial fluid collection. The ventricles and sulci are unremarkable. The basal cisterns are patent. The calvarium is intact. The visualized paranasal sinuses and mastoid air cells are clear. CT/CT head/brain wo IV con IMPRESSION: No acute intracranial hemorrhage or mass effect.
[2022-06-21 11:46] VITALS: BP 142/88; PULSE 113; RESP 20; TEMP 37; O2SAT 96; BMI 39.6
--- NOTE | 2022-06-21 11:55 | ECG_ITS ---
Test Reason : numbness Blood Pressure : / mmHG Vent. Rate : 106 BPM Atrial Rate : 106 BPM P-R Int : 134 ms QRS Dur : 078 ms QT Int : 330 ms P-R-T Axes : 027 089 001 degrees QTc Int : 438 ms Sinus tachycardia Otherwise normal ECG When compared with ECG of 26-MAR-2022 09:08, No significant change was found Referred By: Raquel Chapin Electronically Signed By:JOSEPH PEARCE
--- NOTE | 2022-06-21 11:57 | ED.EXTPRO ---
HPI - Extremity Problem General Chief complaint: Extremity Injury, Upper <ADRIÁN Rutherford - Last Filed: 06/21/22 12:02> Stated complaint: numbness/ severe pain <ADRIÁN Rutherford - Last Filed: 06/21/22 12:02> Time Seen by Provider: 06/21/22 13:26 <ADRIÁN Rutherford - Last Filed: 06/21/22 12:02> Source: patient <Dre Perez MD - Last Filed: 06/21/22 16:12> Mode of arrival: ambulatory <Dre Perez MD - Last Filed: 06/21/22 16:12> Limitations: no limitations <Dre Perez MD - Last Filed: 06/21/22 16:12> History of Present Illness HPI Narrative: 32-year-old male who recently had sleeve gastrectomy that was complicated due to intraoperative adhesion the surgery lasted for 6 hours, patient had postoperative rhabdomyolysis, after surgery patient has developed severe upper and lower extremities pain, patient had inhouse Neurology consultation and postoperative EMG which was unremarkable and was advised to treat rhabdomyolysis with PT OT. Patient also had a vascular consultation who thought that the patient's symptoms is due to prolonged at operative time and positioning, patient had ultrasound which showed no abnormal arterial/venous pathology in particular no arterial occlusion, no DVT. Patient is progressing well after surgery however patient returned today for excruciating pain to the left upper extremities and weakness. Patient was sent by Dr. Newton for MRI of the left upper extremities. [place] [id number] today with normal kidney function tests. <Dre Perez MD - Last Filed: 06/21/22 16:12> Related Data Home medications: Previous Rx's Medication Instructions Recorded ondansetron 4 mg disintegrating 4 mg PO Q12H nausea and vomiting 06/02/22 tablet #20 tabs pantoprazole 40 mg tablet,delayed 40 mg PO DAILY #30 tabs 06/02/22 release sucralfate 100 mg/mL oral 10 ml PO BID #400 mL 06/02/22 suspension gabapentin 100 mg capsule 100 mg PO TID #90 caps 06/19/22 oxycodone-acetaminophen 5 mg-325 1 tab PO Q6H PRN pain #10 tabs 06/21/22 mg tablet (Percocet) <ADRIÁN Rutherford - Last Filed: 06/21/22 12:02> Allergies/Adverse reactions: Allergies Allergy/AdvReac Type Severity Reaction Status Date / Time No Known Allergies Allergy Verified 06/21/22 11:55 <ADRIÁN Rutherford - Last Filed: 06/21/22 12:02> Review of Systems Review of Systems: All other systems are reviewed and are negative Constitutional: Reports as per HPI and Reports no additional constitutional complaints Eyes: Reports as per HPI and Reports no additional eye complaints Reports system reviewed and no additional complaints, except as documented Cardiovascular: Reports as per HPI and Reports no additional cardiovascular complaints Respiratory: Reports as per HPI and Reports no additional respiratory complaints Gastrointestinal: Reports as per HPI and Reports no additional gastrointestinal complaints Genitourinary: Reports no additional female genitourinary complaints Musculoskeletal: Reports no additional musculoskeletal complaints Skin/Breast: Reports system reviewed and no additional complaints, except as docu Psychiatric: Reports no additional psychiatric complaints Endocrine: Reports no additional endocrine complaints Hematologic/Lymphatic: Reports no additional hematologic/lymphatic complaints Allergic/Immunologic: Reports no additional allergic/immunologic complaints Reports system reviewed and no additional complaints, except as documented and Reports Abnormal speech present <Dre Perez MD - Last Filed: 06/21/22 16:12> [facility] Past Medical History Medical History: Medical History Pre-op evaluation Sleep apnea <ADRIÁN Rutherford - Last Filed: 06/21/22 12:02> Surgical History: Surgical History Hx of bariatric surgery Hx of knee surgery <ADRIÁN Rutherford - Last Filed: 06/21/22 12:02> Family History Family History: Family History Mother Arthritis Fibromyalgia Father No problems noted. Sister No problems noted. Son No problems noted. 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 <ADRIÁN Rutherford - Last Filed: 06/21/22 12:02> Physical Exam Vital Signs: Vital Signs: Last Vital Signs Temp 98.3 F 06/21/22 16:14 Pulse 94 06/21/22 16:14 Resp 16 06/21/22 16:14 BP 151/108 H 06/21/22 16:14 Pulse Ox 96 06/21/22 16:14 O2 Del Method Room Air 06/21/22 16:14 BMI result Body Mass Index 39.6 <ADRIÁN Rutherford - Last Filed: 06/21/22 12:02> Vital Signs: Last Vital Signs Temp 98.3 F 06/21/22 16:14 Pulse 94 06/21/22 16:14 Resp 16 06/21/22 16:14 BP 151/108 H 06/21/22 16:14 Pulse Ox 96 06/21/22 16:14 O2 Del Method Room Air 06/21/22 16:14 BMI result Body Mass Index 39.6 Vital signs have been reviewed as appeared to be correct. Blood pressure normal. Heart rate elevated. Respiration rate normal. Temperature normal. Oxygen saturation normal. <Dre Perez MD - Last Filed: 06/21/22 16:12> Vital Signs: Last Vital Signs Temp 98.3 F 06/21/22 16:14 Pulse 94 06/21/22 16:14 Resp 16 06/21/22 16:14 BP 151/108 H 06/21/22 16:14 Pulse Ox 96 06/21/22 16:14 O2 Del Method Room Air 06/21/22 16:14 BMI result Body Mass Index 39.6 <Dimitris Jung MD - Last Filed: 06/21/22 19:25> Appearance: Alert. Oriented X3. No acute distress. Head: Normal external exam. Normocephalic. Atraumatic. No Navarrete signs noted. No raccoon eyes noted Eyes: PERRLA. EOMI. Conjunctiva and sclera normal. Eyelids normal. ENT: TM's Normal. Pharynx normal. Uvula midline. Moist mucous membranes. No trismus noted. No drooling noted. No muffled voice noted. Neck: Normal inspection. Neck supple. FROM. No adenopathy. Thyroid Normal. No meningeal signs. No neck mass noted. CVS: Normal heart rate and rhythm. Heart sound normal. No murmurs noted. Pulses normal throughout. Respiratory: No respiratory distress. Painless inspiration. Breath sounds normal. No wheezes/rales/rhonchi noted. Chest nontender. No accessory muscle usage noted or decreased air movement noted. Abdomen: Soft and nontender. Bowel sounds normal in all 4 quadrants. No distention noted. No organomegaly noted. No visible injury noted. Back: No CVA tenderness. Full range of motion noted. Skin: Skin warm and dry. Normal skin color. Normal skin turgor. No rashes/lesions/lacerations noted. Extremities: No lower extremity edema. Extremities exhibit normal range of motion. Extremities nontender. Neuro: Oriented X 3. Cranial nerve exam: II-XII are grossly intact Left upper extremities weakness with pronator drift, decreased light touch sensation to the whole entire left upper extremity.. No sensory deficit. Reflexes normal. <Dre Perez MD - Last Filed: 06/21/22 16:12> Course Course Course Narrative: MAYURI-11:55AM - 32yoM with a PMHx of liver steatosis, GERD, struck to sleep apnea, obesity who is now status post laparoscopic sleeve gastrectomy performed by Dr. Newton on 06/11/2022 who is presenting to the ER with complaints of persistent/worsening left forearm/hand paresthesias/weakness. Reports that he cannot feel his left hand/forearm. Reports a burning sensation associated with this. Reports he has some mild numbness to his right hand between the webspace of the thumb and the index finger which has improved due to his started at the forearm as well. This started directly after surgery and he was seen by Neurology had an MRI of his cervical spine MRI on 06/19/2022 which did not reveal any chronic processes, a left forearm CT scan, a duplex scan upper extremity arterial and venous duplex ultrasound which were negative for DVTs or any other acute processes. Although patient concerned due to weakness is progressively getting worse. Reports he has not had any imaging of his head. He feels like the pain is radiating up to his left shoulder/chest area. Denies any changes in vision, dizziness, headaches, weakness to the face or any other extremities, any paresthesias to any other extremities, abnormal gait or any other symptoms complaints or concerns at this time. Patient reports the neurologist told him that he should have a MRI of his shoulder. On exam patient does have left hand/forearm weakness. Otherwise he is able to move all other extremities and no weakness anywhere else in the entire body. Normal steady gait. Plan: At this time will obtain CT scan of brain, labs, EKG, chest x-ray patient will be sent back to the waiting room for further evaluation and treatment in the ED. he has had the symptoms for 10 days. <ADRIÁN Rutherford - Last Filed: 06/21/22 12:02> Reevaluation(s) Reevaluation #1: Patient is getting left upper extremities MRI, awaiting for MRI result and discussed with Raymond tello the case signed to <Dre Perez MD - Last Filed: 06/21/22 16:12> Time: 16:05 <Dre Perez MD - Last Filed: 06/21/22 16:12> Medications Administered Discontinued Medications Generic Name Dose Route Start Last Admin Trade Name Freq PRN Reason Stop Dose Admin Hydromorphone HCl 2 mg 06/21/22 13:33 06/21/22 14:42 Hydromorphone Hcl 1 Mg/Ml Syringe IVPUSH 06/21/22 13:34 2 mg ONCE ONE Administration Protocol <ADRIÁN Rutherford - Last Filed: 06/21/22 12:02> Medications Administered Discontinued Medications Generic Name Dose Route Start Last Admin Trade Name Freq PRN Reason Stop Dose Admin Hydromorphone HCl 2 mg 06/21/22 13:33 06/21/22 14:42 Hydromorphone Hcl 1 Mg/Ml Syringe IVPUSH 06/21/22 13:34 2 mg ONCE ONE Administration Protocol <Dre Perez MD - Last Filed: 06/21/22 16:12> Medications Administered Discontinued Medications Generic Name Dose Route Start Last Admin Trade Name Freq PRN Reason Stop Dose Admin Hydromorphone HCl 2 mg 06/21/22 13:33 06/21/22 14:42 Hydromorphone Hcl 1 Mg/Ml Syringe IVPUSH 06/21/22 13:34 2 mg ONCE ONE Administration Protocol <Dimitris Jung MD - Last Filed: 06/21/22 19:25> Medical Decision Making Medical Decision Making MDM Narrative: Patient MRI-essentially negative showed mild myositis and edema MR/MR forearm LT wo con IMPRESSION: 1.? Heterogeneous, lobulated signal involving the distal brachialis muscle extending to the tendon insertion, correlating to the prior CT findings. Findings are nonspecific and could represent a focal myositis. An infectious or inflammatory radiology could be considered in the appropriate clinical setting. No measurable tear or tendon retraction. ? 2.? Dorsal subcutaneous edema. ?Case discussed with patient's surgeon advised to follow up as outpatient <Dimitris Jung MD - Last Filed: 06/21/22 19:25> Lab Data Result Diagrams: 06/21/22 12:25 06/21/22 12:25 <ADRIÁN Rutherford - Last Filed: 06/21/22 12:02> Labs: Lab Results 06/21/22 06/21/22 06/21/22 Range/Units 12:25 12:25 12:25 WBC 8.5 (4.8-10.8) X10*3/uL RBC 5.92 H (4.60-5.80) X10*6/uL Hgb 17.9 (14.0-18.0) g/dl Hct 52.2 H (42.0-52.0) % MCV 88.2 (80.0-98.0) fL MCH 30.2 (27.0-33.0) pg MCHC 34.3 (31.0-36.0) g/dl RDW 12.2 (11.0-16.0) % Plt Count 346 (160-400) X10*3/uL MPV 9.7 (9.4-12.4) fL Immature Gran % (Auto) 0.7 H (0.0-0.4) % Neut % (Auto) 72.1 (45-73) % Lymph % (Auto) 17.3 L (20-40) % [place] % (Auto) 7.3 (2-11) % Eos % (Auto) 1.9 (0-4) % Baso % (Auto) 0.7 (0-2) % Lymph # (Auto) 1.5 (1.2-4.9) X10*3/uL [place] # (Auto) 0.6 (0.1-1.2) X10*3/uL Eos # (Auto) 0.2 (0.0-0.4) X10*3/uL Baso # (Auto) 0.1 (0.0-0.2) X10*3/uL Abs Immat Gran (auto) 0.06 H (0.00-0.03) X10*3/uL Absolute Neuts (auto) 6.1 (2.0-8.3) x10*3/uL Absolute Nucleated RBC 0.000 (0.0-0.012) X10*3/uL Nucleated RBC % (auto) 0.0 (0.0-0.2) /100WBC PT 13.9 H (10.0-13.1) SEC INR 1.2 H (0.9-1.1) Sodium 138 (135-145) mmol/L Potassium 4.3 (3.3-5.1) mmol/L Chloride 105 (96-108) mmol/L Carbon Dioxide 22 (22-29) mmol/L Anion Gap 15 (12-20) BUN 14 (9-16) mg/dL Creatinine 1.13 (0.5-1.4) mg/dL Estim Creat Clear Calc 118.4 Estimated GFR > 60 Random Glucose 85 (60-115) mg/dL Calcium 9.5 D (8.4-10.2) mg/dL Magnesium 1.8 (1.6-2.6) mg/dL Total Bilirubin 0.9 (0.0-1.0) mg/dL AST 29 (5-37) U/L ALT 42 H (0-40) U/L Alkaline Phosphatase 60 (39-117) U/L Total Creatine Kinase 403 H (38-174) U/L Troponin I High Sens (<3.5-35.0) ng/L Total Protein 7.2 (6.5-8.0) g/dL Albumin 4.3 (3.5-5.0) g/dL Influenza Type A (PCR) (Negative) Influenza Type B (PCR) (Negative) RSV RNA Qual (PCR) (Negative) SARS-CoV-2 RNA (RT-PCR) (Negative) 06/21/22 06/21/22 Range/Units 12:25 12:25 WBC (4.8-10.8) X10*3/uL RBC (4.60-5.80) X10*6/uL Hgb (14.0-18.0) g/dl Hct (42.0-52.0) % MCV (80.0-98.0) fL MCH (27.0-33.0) pg MCHC (31.0-36.0) g/dl RDW (11.0-16.0) % Plt Count (160-400) X10*3/uL MPV (9.4-12.4) fL Immature Gran % (Auto) (0.0-0.4) % Neut % (Auto) (45-73) % Lymph % (Auto) (20-40) % [place] % (Auto) (2-11) % Eos % (Auto) (0-4) % Baso % (Auto) (0-2) % Lymph # (Auto) (1.2-4.9) X10*3/uL [place] # (Auto) (0.1-1.2) X10*3/uL Eos # (Auto) (0.0-0.4) X10*3/uL Baso # (Auto) (0.0-0.2) X10*3/uL Abs Immat Gran (auto) (0.00-0.03) X10*3/uL Absolute Neuts (auto) (2.0-8.3) x10*3/uL Absolute Nucleated RBC (0.0-0.012) X10*3/uL Nucleated RBC % (auto) (0.0-0.2) /100WBC PT (10.0-13.1) SEC INR (0.9-1.1) Sodium (135-145) mmol/L Potassium (3.3-5.1) mmol/L Chloride (96-108) mmol/L Carbon Dioxide (22-29) mmol/L Anion Gap (12-20) BUN (9-16) mg/dL Creatinine (0.5-1.4) mg/dL Estim Creat Clear Calc Estimated GFR Random Glucose (60-115) mg/dL Calcium (8.4-10.2) mg/dL Magnesium (1.6-2.6) mg/dL Total Bilirubin (0.0-1.0) mg/dL AST (5-37) U/L ALT (0-40) U/L Alkaline Phosphatase (39-117) U/L Total Creatine Kinase (38-174) U/L Troponin I High Sens < 2.7 (<3.5-35.0) ng/L Total Protein (6.5-8.0) g/dL Albumin (3.5-5.0) g/dL Influenza Type A (PCR) NEGATIVE (Negative) Influenza Type B (PCR) NEGATIVE (Negative) RSV RNA Qual (PCR) NEGATIVE (Negative) SARS-CoV-2 RNA (RT-PCR) NEGATIVE (Negative) <ADRIÁN Rutherford - Last Filed: 06/21/22 12:02> Lab Results 06/21/22 06/21/22 06/21/22 Range/Units 12:25 12:25 12:25 WBC 8.5 (4.8-10.8) X10*3/uL RBC 5.92 H (4.60-5.80) X10*6/uL Hgb 17.9 (14.0-18.0) g/dl Hct 52.2 H (42.0-52.0) % MCV 88.2 (80.0-98.0) fL MCH 30.2 (27.0-33.0) pg MCHC 34.3 (31.0-36.0) g/dl RDW 12.2 (11.0-16.0) % Plt Count 346 (160-400) X10*3/uL MPV 9.7 (9.4-12.4) fL Immature Gran % (Auto) 0.7 H (0.0-0.4) % Neut % (Auto) 72.1 (45-73) % Lymph % (Auto) 17.3 L (20-40) % [place] % (Auto) 7.3 (2-11) % Eos % (Auto) 1.9 (0-4) % Baso % (Auto) 0.7 (0-2) % Lymph # (Auto) 1.5 (1.2-4.9) X10*3/uL [place] # (Auto) 0.6 (0.1-1.2) X10*3/uL Eos # (Auto) 0.2 (0.0-0.4) X10*3/uL Baso # (Auto) 0.1 (0.0-0.2) X10*3/uL Abs Immat Gran (auto) 0.06 H (0.00-0.03) X10*3/uL Absolute Neuts (auto) 6.1 (2.0-8.3) x10*3/uL Absolute Nucleated RBC 0.000 (0.0-0.012) X10*3/uL Nucleated RBC % (auto) 0.0 (0.0-0.2) /100WBC PT 13.9 H (10.0-13.1) SEC INR 1.2 H (0.9-1.1) Sodium 138 (135-145) mmol/L Potassium 4.3 (3.3-5.1) mmol/L Chloride 105 (96-108) mmol/L Carbon Dioxide 22 (22-29) mmol/L Anion Gap 15 (12-20) BUN 14 (9-16) mg/dL Creatinine 1.13 (0.5-1.4) mg/dL Estim Creat Clear Calc 118.4 Estimated GFR > 60 Random Glucose 85 (60-115) mg/dL Calcium 9.5 D (8.4-10.2) mg/dL Magnesium 1.8 (1.6-2.6) mg/dL Total Bilirubin 0.9 (0.0-1.0) mg/dL AST 29 (5-37) U/L ALT 42 H (0-40) U/L Alkaline Phosphatase 60 (39-117) U/L Total Creatine Kinase 403 H (38-174) U/L Troponin I High Sens (<3.5-35.0) ng/L Total Protein 7.2 (6.5-8.0) g/dL Albumin 4.3 (3.5-5.0) g/dL Influenza Type A (PCR) (Negative) Influenza Type B (PCR) (Negative) RSV RNA Qual (PCR) (Negative) SARS-CoV-2 RNA (RT-PCR) (Negative) 06/21/22 06/21/22 Range/Units 12:25 12:25 WBC (4.8-10.8) X10*3/uL RBC (4.60-5.80) X10*6/uL Hgb (14.0-18.0) g/dl Hct (42.0-52.0) % MCV (80.0-98.0) fL MCH (27.0-33.0) pg MCHC (31.0-36.0) g/dl RDW (11.0-16.0) % Plt Count (160-400) X10*3/uL MPV (9.4-12.4) fL Immature Gran % (Auto) (0.0-0.4) % Neut % (Auto) (45-73) % Lymph % (Auto) (20-40) % [place] % (Auto) (2-11) % Eos % (Auto) (0-4) % Baso % (Auto) (0-2) % Lymph # (Auto) (1.2-4.9) X10*3/uL [place] # (Auto) (0.1-1.2) X10*3/uL Eos # (Auto) (0.0-0.4) X10*3/uL Baso # (Auto) (0.0-0.2) X10*3/uL Abs Immat Gran (auto) (0.00-0.03) X10*3/uL Absolute Neuts (auto) (2.0-8.3) x10*3/uL Absolute Nucleated RBC (0.0-0.012) X10*3/uL Nucleated RBC % (auto) (0.0-0.2) /100WBC PT (10.0-13.1) SEC INR (0.9-1.1) Sodium (135-145) mmol/L Potassium (3.3-5.1) mmol/L Chloride (96-108) mmol/L Carbon Dioxide (22-29) mmol/L Anion Gap (12-20) BUN (9-16) mg/dL Creatinine (0.5-1.4) mg/dL Estim Creat Clear Calc Estimated GFR Random Glucose (60-115) mg/dL Calcium (8.4-10.2) mg/dL Magnesium (1.6-2.6) mg/dL Total Bilirubin (0.0-1.0) mg/dL AST (5-37) U/L ALT (0-40) U/L Alkaline Phosphatase (39-117) U/L Total Creatine Kinase (38-174) U/L Troponin I High Sens < 2.7 (<3.5-35.0) ng/L Total Protein (6.5-8.0) g/dL Albumin (3.5-5.0) g/dL Influenza Type A (PCR) NEGATIVE (Negative) Influenza Type B (PCR) NEGATIVE (Negative) RSV RNA Qual (PCR) NEGATIVE (Negative) SARS-CoV-2 RNA (RT-PCR) NEGATIVE (Negative) <Dre Perez MD - Last Filed: 06/21/22 16:12> Lab Results 06/21/22 06/21/22 06/21/22 Range/Units 12:25 12:25 12:25 WBC 8.5 (4.8-10.8) X10*3/uL RBC 5.92 H (4.60-5.80) X10*6/uL Hgb 17.9 (14.0-18.0) g/dl Hct 52.2 H (42.0-52.0) % MCV 88.2 (80.0-98.0) fL MCH 30.2 (27.0-33.0) pg MCHC 34.3 (31.0-36.0) g/dl RDW 12.2 (11.0-16.0) % Plt Count 346 (160-400) X10*3/uL MPV 9.7 (9.4-12.4) fL Immature Gran % (Auto) 0.7 H (0.0-0.4) % Neut % (Auto) 72.1 (45-73) % Lymph % (Auto) 17.3 L (20-40) % [place] % (Auto) 7.3 (2-11) % Eos % (Auto) 1.9 (0-4) % Baso % (Auto) 0.7 (0-2) % Lymph # (Auto) 1.5 (1.2-4.9) X10*3/uL [place] # (Auto) 0.6 (0.1-1.2) X10*3/uL Eos # (Auto) 0.2 (0.0-0.4) X10*3/uL Baso # (Auto) 0.1 (0.0-0.2) X10*3/uL Abs Immat Gran (auto) 0.06 H (0.00-0.03) X10*3/uL Absolute Neuts (auto) 6.1 (2.0-8.3) x10*3/uL Absolute Nucleated RBC 0.000 (0.0-0.012) X10*3/uL Nucleated RBC % (auto) 0.0 (0.0-0.2) /100WBC PT 13.9 H (10.0-13.1) SEC INR 1.2 H (0.9-1.1) Sodium 138 (135-145) mmol/L Potassium 4.3 (3.3-5.1) mmol/L Chloride 105 (96-108) mmol/L Carbon Dioxide 22 (22-29) mmol/L Anion Gap 15 (12-20) BUN 14 (9-16) mg/dL Creatinine 1.13 (0.5-1.4) mg/dL Estim Creat Clear Calc 118.4 Estimated GFR > 60 Random Glucose 85 (60-115) mg/dL Calcium 9.5 D (8.4-10.2) mg/dL Magnesium 1.8 (1.6-2.6) mg/dL Total Bilirubin 0.9 (0.0-1.0) mg/dL AST 29 (5-37) U/L ALT 42 H (0-40) U/L Alkaline Phosphatase 60 (39-117) U/L Total Creatine Kinase 403 H (38-174) U/L Troponin I High Sens (<3.5-35.0) ng/L Total Protein 7.2 (6.5-8.0) g/dL Albumin 4.3 (3.5-5.0) g/dL Influenza Type A (PCR) (Negative) Influenza Type B (PCR) (Negative) RSV RNA Qual (PCR) (Negative) SARS-CoV-2 RNA (RT-PCR) (Negative) 06/21/22 06/21/22 Range/Units 12:25 12:25 WBC (4.8-10.8) X10*3/uL RBC (4.60-5.80) X10*6/uL Hgb (14.0-18.0) g/dl Hct (42.0-52.0) % MCV (80.0-98.0) fL MCH (27.0-33.0) pg MCHC (31.0-36.0) g/dl RDW (11.0-16.0) % Plt Count (160-400) X10*3/uL MPV (9.4-12.4) fL Immature Gran % (Auto) (0.0-0.4) % Neut % (Auto) (45-73) % Lymph % (Auto) (20-40) % [place] % (Auto) (2-11) % Eos % (Auto) (0-4) % Baso % (Auto) (0-2) % Lymph # (Auto) (1.2-4.9) X10*3/uL [place] # (Auto) (0.1-1.2) X10*3/uL Eos # (Auto) (0.0-0.4) X10*3/uL Baso # (Auto) (0.0-0.2) X10*3/uL Abs Immat Gran (auto) (0.00-0.03) X10*3/uL Absolute Neuts (auto) (2.0-8.3) x10*3/uL Absolute Nucleated RBC (0.0-0.012) X10*3/uL Nucleated RBC % (auto) (0.0-0.2) /100WBC PT (10.0-13.1) SEC INR (0.9-1.1) Sodium (135-145) mmol/L Potassium (3.3-5.1) mmol/L Chloride (96-108) mmol/L Carbon Dioxide (22-29) mmol/L Anion Gap (12-20) BUN (9-16) mg/dL Creatinine (0.5-1.4) mg/dL Estim Creat Clear Calc Estimated GFR Random Glucose (60-115) mg/dL Calcium (8.4-10.2) mg/dL Magnesium (1.6-2.6) mg/dL Total Bilirubin (0.0-1.0) mg/dL AST (5-37) U/L ALT (0-40) U/L Alkaline Phosphatase (39-117) U/L Total Creatine Kinase (38-174) U/L Troponin I High Sens < 2.7 (<3.5-35.0) ng/L Total Protein (6.5-8.0) g/dL Albumin (3.5-5.0) g/dL Influenza Type A (PCR) NEGATIVE (Negative) Influenza Type B (PCR) NEGATIVE (Negative) RSV RNA Qual (PCR) NEGATIVE (Negative) SARS-CoV-2 RNA (RT-PCR) NEGATIVE (Negative) <Dimitris Jung MD - Last Filed: 06/21/22 19:25> Discharge Plan Discharge Clinical Impression: Paresthesia of left upper extremity, Musculoskeletal arm pain <ADRIÁN Rutherford - Last Filed: 06/21/22 12:02> Patient Disposition: Home, Self-Care <ADRIÁN Rutherford - Last Filed: 06/21/22 12:02> Instructions: Paresthesia (ED), Musculoskeletal Pain (ED) <ADRIÁN Rutherford - Last Filed: 06/21/22 12:02> Additional Instructions: Follow-up with your surgeon tomorrow Take pain medication as prescribed <ADRIÁN Rutherford - Last Filed: 06/21/22 12:02> Prescriptions: New oxycodone-acetaminophen [Percocet] 5-325 mg tablet 1 tab PO Q6H PRN (Reason: pain) Qty: 10 0RF Rx Instructions: Partial Fill upon patient request. No Action pantoprazole 40 mg tablet,delayed release (DR/EC) 40 mg PO DAILY Qty: 30 2RF sucralfate 100 mg/mL suspension 10 ml PO BID Qty: 400 2RF ondansetron 4 mg tablet,disintegrating 4 mg PO Q12H Qty: 20 0RF Rx Instructions: ONLY use if you have nausea as needed gabapentin 100 mg capsule 100 mg PO TID Qty: 90 0RF <ADRIÁN Rutherford - Last Filed: 06/21/22 12:02>
[2022-06-21 12:31] LABS: MANUAL DIFF FLAG NO
[2022-06-21 12:35] LABS: Basophils Absolute Auto 0.1 X10*3/uL (0.0-0.2); Basophils Percent Auto 0.7 % (0-2); Eosinophils Absolute Auto 0.2 X10*3/uL (0.0-0.4); Eosinophils Percent Auto 1.9 % (0-4); Hematocrit 52.2 % (42.0-52.0); Hemoglobin 17.9 g/dl (14.0-18.0); Imm Gran Abs Auto 0.06 X10*3/uL (0.00-0.03); Imm Gran Pct Auto 0.7 % (0.0-0.4); Lymphocytes Absolute Auto 1.5 X10*3/uL (1.2-4.9); Lymphocytes Percent Auto 17.3 % (20-40); Mean Corpuscular HGB Conc 34.3 g/dl (31.0-36.0); Mean Corpuscular Hemoglobin 30.2 pg (27.0-33.0); Mean Corpuscular Volume 88.2 fL (80.0-98.0); Mean Platelet Volume 9.7 fL (9.4-12.4); Monocytes Absolute Auto 0.6 X10*3/uL (0.1-1.2); Monocytes Percent Auto 7.3 % (2-11); Neutrophils Absolute Auto 6.1 x10*3/uL (2.0-8.3); Neutrophils Percent Auto 72.1 % (45-73); Platelet Count 346 X10*3/uL (160-400); Red Blood Count 5.92 X10*6/uL (4.60-5.80); Red Cell Distribution Width 12.2 % (11.0-16.0); White Blood Count 8.5 X10*3/uL (4.8-10.8)
[2022-06-21 12:50] LABS: Alanine Aminotransferase 42 U/L (0-40); Albumin Level 4.3 g/dL (3.5-5.0); Alkaline Phosphatase 60 U/L (39-117); Anion Gap 15 (12-20); Aspartate Amino Transferase 29 U/L (5-37); Bilirubin Total 0.9 mg/dL (0.0-1.0); Blood Urea Nitrogen 14 mg/dL (9-16); Calcium 9.5 mg/dL (8.4-10.2); Carbon Dioxide 22 mmol/L (22-29); Chloride 105 mmol/L (96-108); Creatinine Clr Calc Pharmacy 118.4; Estimated Glomerular Filt Rate > 60; Glucose Random 85 mg/dL (60-115); Magnesium 1.8 mg/dL (1.6-2.6); Potassium 4.3 mmol/L (3.3-5.1); Sodium 138 mmol/L (135-145); Total Protein 7.2 g/dL (6.5-8.0)
[2022-06-21 12:58] LABS: INTERNATIONAL NORM RATIO 1.2 (0.9-1.1); Prothrombin Time 13.9 SEC (10.0-13.1)
[2022-06-21 13:00] LABS: Troponin-I High Sensitivity < 2.7 ng/L (<3.5-35.0)
[2022-06-21 13:17] LABS: Influenza A PCR NEGATIVE (Negative); Influenza B PCR NEGATIVE (Negative); Resp Syncy Virus RNA Qual PCR NEGATIVE (Negative); SARS COV2 PCR INHOUSE NEGATIVE (Negative)
[2022-06-21 13:49] VITALS: BP 147/99; PULSE 91; RESP 20; O2SAT 99
--- NOTE | 2022-06-21 14:23 | PM.CNGS ---
History of Present Illness Consult details Consult date: 06/21/22 Reason for consult: other Narrative: Patient is a 32-year-old male, postop day 10., status post revision of sleeve gastrectomy. Postoperative course complicated by rhabdomyolysis, acute kidney injury, bilateral upper extremity paresthesias. He remained in the hospital 1 additional day and was seen by vascular surgery and Neurology. Ruled out for DVT of the left upper extremity which was his most painful extremity. Rhabdo improved as well as his MARIA L and he was discharged home. He was seen in consultation in the outpatient setting by Neurology for follow-up as he continued to have significant bilateral upper extremity paresthesias, left worse than right. Recommendation was for EMG. Discussion was had with the patient on Wednesday due to worsening pain and he was prescribed gabapentin 100 mg orally 3 times a day. He called the office this morning with worsening pain and after discussion with Dr. Newton, the decision was made to send him to the emergency room for labs and MRI of his left upper extremity. In the emergency room he did have a CT scan of his head which was negative, lab indices all revealed improvement including his CK now down to 403 from 7301. MRI is currently pending. From a post surgical perspective, patient has done extremely well. His weight is now down to 259 lb and he is tolerating his shakes without difficulty although he does not particularly like the celebrate 4:1 as much. He has no complaints regarding his stomach or gastric revision. He describes the pain in his right upper extremity as a numbness within the web of his thumb and 1st finger although reportedly this has been improving over the last 10 days. The previously noted pain in bilateral feet has completely resolved. The pain in his left upper extremity is described as sharp, burning, electric shock. He also describes the left arm as ?heavy?. 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 He also describes a numbness to his hand and forearm. Review of Systems Review of Systems: Yes all other systems are reviewed and are negative PMFSH Past Medical History Medical History Pre-op evaluation Sleep apnea Family History Family History Mother Arthritis Fibromyalgia Father No problems noted. Sister No problems noted. Son No problems noted. 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 Meds Allergies Allergy/AdvReac Type Severity Reaction Status Date / Time No Known Allergies Allergy Verified 06/21/22 11:55 Physical Exam Vital Signs: Vital Signs: Last Vital Signs Temp 98.6 F 06/21/22 11:46 Pulse 91 06/21/22 13:49 Resp 20 06/21/22 13:49 BP 147/99 H 06/21/22 13:49 Pulse Ox 99 06/21/22 13:49 O2 Del Method Room Air 06/21/22 13:49 BMI result Body Mass Index 39.6 Const: General: healthy appearing and no acute distress Resp: Effort & Inspection: normal respiratory effort Auscultation: clear to auscultation bilaterally Cardio: Rate: regular rate Rhythm: regular rhythm GI: Inspection: Yes incision (All healing well.) Auscultation: normal bowel sounds Extrem: Other: Bilateral forearms are approximately the same size although there is increased swelling of his left hand compared to his right. He has decreased sensation within the right web space of his thumb and 1st finger although chief fundraising officer strength is 4/5. Left hand has minimal appreciable chief fundraising officer strength overall and tenderness with passive movement of his fingers. There is a resolving hematoma at the in her distal arm, just proximal to the left elbow. Temperature and color is equal bilaterally to his hands. Pulses remain strong bilaterally. 2+. Results Labs 06/21/22 12:25 06/21/22 12:25 Labs: Abnormal lab results 06/21/22 06/21/22 06/21/22 Range/Units 12:25 12:25 12:25 RBC 5.92 H (4.60-5.80) X10*6/uL Hct 52.2 H (42.0-52.0) % Immature Gran % (Auto) 0.7 H (0.0-0.4) % Lymph % (Auto) 17.3 L (20-40) % Abs Immat Gran (auto) 0.06 H (0.00-0.03) X10*3/uL PT 13.9 H (10.0-13.1) SEC INR 1.2 H (0.9-1.1) ALT 42 H (0-40) U/L Total Creatine Kinase 403 H (38-174) U/L Short CBC 06/21/22 Range/Units 12:25 WBC 8.5 (4.8-10.8) X10*3/uL Hgb 17.9 (14.0-18.0) g/dl Hct 52.2 H (42.0-52.0) % Plt Count 346 (160-400) X10*3/uL BMP 06/21/22 12:25 Sodium 138 Potassium 4.3 Chloride 105 Carbon Dioxide 22 BUN 14 Creatinine 1.13 Calcium 9.5 D Cardiac Enzymes 06/21/22 Range/Units 12:25 Total Creatine Kinase 403 H (38-174) U/L Liver Function 06/21/22 Range/Units 12:25 Total Bilirubin 0.9 (0.0-1.0) mg/dL AST 29 (5-37) U/L ALT 42 H (0-40) U/L Alkaline Phosphatase 60 (39-117) U/L Albumin 4.3 (3.5-5.0) g/dL All other labs normal. Assessment and Plan (1) Paresthesia: Status: Acute The noted increase in left arm pain, is likely improving paresthesias and return of nerve function. However, given the noted hypoattenuation of the brachialis muscle on CT scan 9 days ago, we have ordered and recommended an MRI of his left arm. All indications of his previous rhabdomyolysis have improved by lab data. Recommendation is to continue gabapentin, 300 mg p.o. t.i.d. he will have close follow-up in the office, once discharged from the emergency room. (2) Rectal bleeding: Status: Acute Resolved. Plan Case discussed with Dr. Newton. Time Spent With Patient Time: Total time managing care of this patient today ____ minutes. Procedures Date of Service Date of Service: 06/21/22
[2022-06-21] MEDS: HYDROmorphone HCl 1 MG/ML SYRINGE 2 MG IVPUSH (14:42)
--- NOTE | 2022-06-21 14:55 | PC.NURSE ---
Patient medicated per MAR for pain. Patient down in MRI at this time.
[2022-06-21 16:14] VITALS: BP 151/108; PULSE 94; RESP 16; TEMP 36.8; O2SAT 96
[2022-06-21 19:39] VITALS: BP 140/89; PULSE 97; RESP 18; O2SAT 97
== END 2022-06-21 19:47 | disposition home or self-care (01) ==
PROVIDERS: Physician Assistant Medical; Emergency Provider Emergency Medicine; PCP Internal Medicine
DX: R20.2 Paresthesia of skin (principal); R60.0 Localized edema; R00.0 Tachycardia, unspecified; R51.9 Headache, unspecified; M79.602 Pain in left arm; Z98.84 Bariatric surgery status; Z79.899 Other long term (current) drug therapy; Z20.822 Contact with and (suspected) exposure to COVID-19; Z20.828 Contact with and (suspected) exposure to other viral communicable diseases
CPT/HCPCS: 0241U; 70450; 73218; 80053; 82550; 83735; 84484; 85025; 85610; 87040; 93005; 96374; 99284; J1170

== ENCOUNTER → 2022-06-24 10:57 | Outpatient (BNVA) | payer OTHER, SELFPAY | PROVIDERS: PCP Internal Medicine; Visit Provider Surgery | DX: K64.9 Unspecified hemorrhoids (principal) | CPT/HCPCS: 46600 ==

== ENCOUNTER → 2022-06-30 12:34 | Outpatient (BNVA) | payer OTHER, SELFPAY | PROVIDERS: PCP Internal Medicine; Visit Provider Orthopaedic Surgery | DX: R20.0 Anesthesia of skin (principal); R20.2 Paresthesia of skin; Z98.84 Bariatric surgery status | CPT/HCPCS: 99212 ==

== ENCOUNTER → 2022-07-03 10:34 | Outpatient (BNVA) | payer OTHER, SELFPAY | PROVIDERS: PCP Internal Medicine; Visit Provider Physician Assistant Surgical | DX: Z13.89 Encounter for screening for other disorder (principal) ==

== ENCOUNTER → 2022-07-10 09:26 | Outpatient (BNVA) | payer OTHER, SELFPAY | PROVIDERS: PCP Internal Medicine; Visit Provider Orthopaedic Surgery ==

== ENCOUNTER → 2022-07-13 08:23 | Outpatient (BNVA) | payer OTHER, SELFPAY | PROVIDERS: PCP Internal Medicine; Visit Provider Physician Assistant Surgical ==

== ENCOUNTER 2022-07-13 11:00 | Outpatient (RCR) | payer OTHER, SELFPAY ==
--- NOTE | 2022-07-15 10:07 | MHC.OT.DC ---
[address] [phone] F: [phone] Occupational Therapy Discharge Note Patient Name: Jasiel Bynum Provider: Raymond Jones Diagnosis: Left hand paresthesias after laparoscopic sleeve gastrectomy Date of Surgery: 06/11/22 Date of Evaluation: 07/01/22 Date of Discharge: 07/15/22 Treatments to Date: 3 Cancellations to Date: No Shows to Date: Discharge Status: Recommend MD Follow-up Discharge Summary: Pt scheduled for left CTR in three days. AROM goals met for LUE . 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 Improved tolerance for bilateral nerve glides nerve flossing noted. Pt reports right hand paresthesia improving Pt continues to reports severe left hand pain interrupting sleep and daily activities Mild-moderate left hand edema noted Left hand pain improved for 8/10 to 6/10 with CP Pt is scheduled for a left CTR this week. Pt may be re referred to OT s/p L CTR Electronically Signed By: Ruby Martino OT CHT CLT Reviewed/agree with student documentation: Therapist: Please Sign and return to therapist, thank you for your referral.
== END 2022-07-15 10:07 | disposition home or self-care (01) ==
LOC: HO.OT 11:00
PROVIDERS: PCP Internal Medicine; Visit Provider Physician Assistant Surgical
DX: R20.2 Paresthesia of skin (principal)
CPT/HCPCS: 97035; 97110; 97140; 97167

== ENCOUNTER → 2022-07-16 13:22 | Day surgery (SDC) | payer OTHER, SELFPAY ==
--- NOTE | 2022-07-16 10:45 | W.PM.OPN ---
Operative Note Operative Note Date of Service: 07/16/22 Narrative: Preop diagnosis: 1. left Carpal tunnel syndrome Postop diagnosis: same Procedure: 1. left Carpal tunnel release Surgeon: Marcia Weaver MD Anesthesia: local block using 1% lidocaine with epinephrine Findings: Thickened transverse carpal ligament. EBL: Less than 5 mL Specimens: None Complications: None Disposition: Brought to recovery room in stable condition Plan: Follow-up for 10-14 days for wound check and suture removal Indications: The patient is 32 years old, with left carpal tunnel syndrome that has been unresponsive to nonoperative management. The risks and benefits of operative treatment including but not limited to risk of damage to blood vessels, nerves, tendons, infection, persistent pain, persistent symptoms, or possible need for additional surgery were discussed with the patient and the patient wishes to proceed with surgery. Procedure: Once consent was obtained a local block was performed using a combination of 1% lidocaine with epinephrine. The patient was then brought back to the operating suite and placed on the operative table in supine position. The left upper extremity was prepped and draped in a standard surgical fashion. Once assured that we had a good block, a 2.0 cm longitudinal incision was made centered over the carpal tunnel. The incision was made through the skin to the subcutaneous tissues using a #15 blade. Dissection was made down to the level of the transverse carpal ligament with care being taken to protect the palmar cutaneous nerve. Once the transverse carpal ligament was clearly visualized, a longitudinal incision was made in the transverse carpal ligament 1st using a #15 blade, then using tenotomy scissors under direct visualization. Care was taken to look for and protect the motor branch of the median nerve when seen in this area. Once satisfied with our carpal tunnel release the wound was copiously irrigated with normal saline and hemostasis was obtained with a brief period of local pressure. The skin edges were reapproximated with some 5.0 nylon suture material and a sterile dressing was applied. The patient appears to have tolerated the procedure well and with no complications. All digits were well vascularized at the conclusion of the case.
[2022-07-16 13:42] VITALS: BMI 36.2
--- NOTE | 2022-07-16 14:40 | MHC.SHP ---
Pre-Procedural Eval Section A Date of Service: 07/16/22 The patient is an INPATIENT: No Changes since office visit: No Cold of Flu in the past 2 weeks, No New Medical Problems, No Changes in Medication and No Patient answered all questions The History & Physical has been completed within 30 days and I have reviewed it.: Yes Section B Chief Complaint: Carpal tunnel syndrome, left upper limb Allergies: Allergies Allergy/AdvReac Type Severity Reaction Status Date / Time No Known Allergies Allergy Verified 07/13/22 13:37 Plan I have reviewed the history and physical and performed a pertinent physical examination on my patient. No changes have occurred unless specified. Time Spent With Patient Time: Total time managing care of this patient today ____ minutes.
[2022-07-16 15:17] VITALS: BP 151/96; PULSE 62; RESP 18; O2SAT 99
== END | disposition home or self-care (01) ==
PROVIDERS: PCP Internal Medicine; Visit Provider Orthopaedic Surgery
PROC: (CPT 64721; principal; 2022-07-16 14:30)
DX: G56.02 Carpal tunnel syndrome, left upper limb (principal); R20.0 Anesthesia of skin; E66.01 Morbid (severe) obesity due to excess calories; Z68.34 Body mass index [BMI] 34.0-34.9, adult; Z98.84 Bariatric surgery status; G47.33 Obstructive sleep apnea (adult) (pediatric); Z99.89 Dependence on other enabling machines and devices
CPT/HCPCS: 64721; J0171

== ENCOUNTER → 2022-07-23 13:03 | Outpatient (BNVA) | payer OTHER, SELFPAY | PROVIDERS: PCP Internal Medicine; Visit Provider Physician Assistant ==

== ENCOUNTER → 2022-07-28 13:13 | Outpatient (BNVA) | payer OTHER, SELFPAY | PROVIDERS: PCP Internal Medicine; Visit Provider Nurse Practitioner Family ==

== ENCOUNTER → 2022-07-29 12:29 | Outpatient (BNVA) | payer OTHER, SELFPAY | PROVIDERS: PCP Internal Medicine; Visit Provider Orthopaedic Surgery ==

== ENCOUNTER → 2022-08-12 08:35 | Outpatient (BNVA) | payer OTHER, SELFPAY | PROVIDERS: PCP Internal Medicine; Visit Provider Physician Assistant Surgical ==

== ENCOUNTER → 2022-08-28 09:00 | Outpatient (BNVA) | payer OTHER, SELFPAY | PROVIDERS: PCP Internal Medicine; Visit Provider Nurse Practitioner Family ==

== ENCOUNTER 2022-09-15 10:43 | Outpatient (AMB) | payer OTHER, SELFPAY ==
--- NOTE | 2022-09-15 10:46 | A.OFFVIS_ITS ---
Intake Vital Signs 09/15/22 10:52 Height 5 ft 8 in Weight 230 lb BMI 35.0 Handedness Left Intake Visit Reasons: PO CTR 07/16/22 AR Intake Note: Jasiel is a 32 year old left hand dominant male who presents today for post operative appointment s/p left CTR on 07/12/22. Patient reports?he is doing a lot better than before. Having numbness in the beginning of the day and it is worse at night. Having some soreness in his pointer and middle finger and stops on the fore arm. Patient states OT is going well and would liek to continue with more sessions. 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 He says he now has normal sensation in his left small & ring fingers, and some improvement in sensation in the median nerve distribution. He says his pain and function has improved since his last appointment. He has been attending OT hand therapy at [facility] in [place] which he says is closer to his home. He is happy with his progress with OT and his managed to improve his strength in his left hand, saying it is now almost equal to his right. L hand strength 85 lb compared to R hand strength 90 lb , according to duy nt report from OT. He feels ready to return to work, and he says OT also believes he is ready to return to work, noting that he will still benefit from continuing therapy to improve strength. He followed with Pain Management and is currently taking Pregabalin/Lyrica for pain relief. He says he has increased pain in the mornings prior to his Pregabalin, and he has increased pain & sensitivity in cold weather. He has been engaging in more normal activities, including exercises at the gym. He is able to lift weight and perform push-ups. He says he has lost 100lbs since his gastric sleeve revision surgery in 12/2021. He is very happy about this His left hand numbness began after there were complications during an abdominal surgery, which made it take longer than intended - a 6 hour procedure. Please see my note from 4/25/23 for more information.? PFSH Medical History Bleeding hemorrhoids Morbid obesity Pre-op evaluation Sleep apnea Surgical History Hx of bariatric surgery Hx of knee surgery Family History Mother Arthritis Fibromyalgia Father No problems noted. Sister No problems noted. Son No problems noted. 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 He could make a fist and extend al his digits Improving but not yet normal sensation in the median nerve distribution Normal sensation to the small and ring fingers Good APB muscle belly firing, no thenar atrophy EMG nerve conduction study: On 07/06/[address] 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 Please see his report for additional information as necessary. Please see my note from 06/30/[address] forearm and forearm MRI results as necessary. Psych Appearance: grossly normal Affect: normal affect Attitude: cooperative Assessment & Plan Assessment & Plan (1) Carpal tunnel syndrome of left wrist: Comment: Left carpal tunnel release 07/12/2022 AR Code(s): G56.02 - Carpal tunnel syndrome, left upper limb Plan Assessment & Plan: 1. Left Carpal tunnel syndrome, S/P release DOS: 07/16/22 Pre-operatively with dense numbness in the median nerve distribution Now with improving but not normal sensation in the median nerve distribution The patient appears to be doing well post-operatively I educated him about the post-operative course I explained that it may take up to 9 months post-operatively to have any improvement in his sensation, but his sensation may fully return to normal He will continue to work on ROM exercises at home and with OT hand therapy I ordered a repeat course of OT hand therapy The patient wants to return to work at full duty and feels like he is ready to do so. He has been working with OT to improve his strength, and has also been going to the gym, lifting weights and doing pushups. He was given a note for work saying he will return to full duty on 09/18/22, allowing for time off to attend OT hand therapy. 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 He can follow up prn Scribed for Marcia Weaver MD by David Salazar, medical device assembler, on 09/15/22 at 11:00 AM, EST. Orders: Orders OT Evaluation and Treatment Today G56.02 - Carpal tunnel syndrome, left upper limb Coding Level of Care Code Global (72508) Diagnoses Carpal tunnel syndrome of left wrist G56.02
[2022-09-15 10:52] VITALS: BMI 35.0
== END 2022-09-15 11:04 | disposition home or self-care (01) ==
PROVIDERS: Visit Provider Orthopaedic Surgery
DX: G56.02 Carpal tunnel syndrome, left upper limb (principal)
CPT/HCPCS: 99024

== ENCOUNTER → 2022-09-15 10:43 | Outpatient (BNVA) | payer OTHER, SELFPAY | PROVIDERS: Visit Provider Orthopaedic Surgery ==

== ENCOUNTER 2022-09-16 09:54 | Outpatient (AMB) | payer OTHER, SELFPAY ==
--- NOTE | 2022-09-16 10:04 | MHC.OFFVISWM ---
Intake VS Expanded 09/16/22 10:08 Height 5 ft 8 in Weight 227 lb 3.2 oz BMI 34.5 BP 138/83 Blood Pressure Location Rt brachial Blood Pressure Position Sitting Pulse 70 Pulse Source Pulse Oximeter Temp 97.2 F Temperature Source Temporal Artery Scan Pulse Oximetry 95 Oxygen Delivery Method Room Air Body Fat 58.0 Body Fat Percentage 25.5 Free Fat Mass 169.0 Muscle Mass 160.8 Visceral Mass 11.0 Water Mass 129.4 BMR 2,296 Intake Visit Reasons: (OV) PO LSG 06/11/22 Allergies No Known Allergies Allergy (Verified 09/16/22 10:06) HPI HPI Comments History of Present Illness Details This?a?32?yo male who is s/p LSG without hiatal hernia repair on?06/11/[address] Newton.? He developed post op rhabdomyolysis requiring an additional night in the hospital.? He developed LUE distal neuropathy> RUE distal.? His neuropathy in his feet has resolved and the right hand still has some residual paresthesia in his 5th digit.? He has seen Neurology and underwent EMG 07/06/22, suggestive of left median nerve compression through the carpal tunnel.? He saw Orhto in follow up on 07/10/22 and underwent Left CTS release on07/12/22.? He has since undergone intensive OT and has had significant improvement. Weight today is 238.2 pounds, with a BMI of 36.2.? There has been a 82 pound weight loss,(initial weight 309.2 pounds) since starting the program on 03/23/22 reflecting a 26.5% total body weight loss and a weight loss of 55.2 pounds since surgery (operative weight 282.4 pounds) reflecting a 19.5% TBWL since surgery.? No complaints of nausea, emesis, abdominal pain or reflux. Reports infrequent but normal bowel movements every 1-2 days and uses stool softeners regularly. Doing centrum silver mvi. Discussed switching to fusion. Meal plan: Lean body RTD (40 gm) 2 meals 6 forks/4 forks ZP bar 6-9 Drinking 48-64 oz water Exercise plan: back to gym, boxing workouts, HIIT, PFSH Medical History Bleeding hemorrhoids Morbid obesity Pre-op evaluation Sleep apnea Surgical History Hx of bariatric surgery Hx of knee surgery Family History Mother Arthritis Fibromyalgia Father No problems noted. Sister No problems noted. Son No problems noted. 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 Satisfied w meal plan. Encouraged to switch to fusion bariatric MVI and alize+ D. He is returning to the gym and back to work Wednesday after prolonged delay due to Carpel Tunnel syndrome. Followed by Ortho and OT for this and has been cleared to return to work. Coding Level of Care Code Est Pt Level 3 (11977) Diagnoses Obesity (BMI 30-39.9) E66.9
[2022-09-16 10:08] VITALS: BP 138/83; PULSE 70; TEMP 36.2; O2SAT 95; BMI 34.5
== END 2022-09-16 10:37 | disposition home or self-care (01) ==
PROVIDERS: PCP Internal Medicine; Visit Provider Physician Assistant Surgical
DX: E66.9 Obesity, unspecified (principal); Z68.34 Body mass index [BMI] 34.0-34.9, adult; Z90.3 Acquired absence of stomach [part of]; Z98.84 Bariatric surgery status
CPT/HCPCS: 99213

== ENCOUNTER → 2022-09-16 09:54 | Outpatient (BNVA) | payer OTHER, SELFPAY | PROVIDERS: PCP Internal Medicine; Visit Provider Physician Assistant Surgical | DX: E66.9 Obesity, unspecified (principal) ==

== ENCOUNTER 2022-12-16 11:00 | Outpatient (AMB) | payer OTHER, SELFPAY ==
--- NOTE | 2022-12-16 11:01 | MHC.OFFVISWM ---
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 He developed post op rhabdomyolysis requiring an additional night in the hospital.? He developed LUE distal neuropathy> RUE distal.? His neuropathy in his feet has resolved and the right hand still has some residual paresthesia in his 5th digit.? He has seen Neurology and underwent EMG 07/06/22, suggestive of left median nerve compression through the carpal tunnel.? He saw Orhto in follow up on 07/10/22 and underwent Left CTS release on07/12/22.? He has since undergone intensive OT and has had significant improvement. Weight today is 227 pounds, with a BMI of 34.5.? There has been a 82.2 pound weight loss,(initial weight 309.2 pounds) since starting the program on 03/23/22 reflecting a 26.5% total body weight loss and a weight loss of 55.4 pounds since surgery (operative weight 282.4 pounds) reflecting a 19.5% TBWL since surgery.? No complaints of nausea, emesis, abdominal pain or reflux. Reports infrequent but normal bowel movements every 1-2 days and uses stool softeners regularly. Doing bariatric fusion. Pant size 36 from 44, clothes fitting much better, energy is great. Right hand is still having some issues with paresthesias. He is using Lyrica but has noticed significant improvement overall. 75-90 % return to normal. States he has been doing spartan races and obstacle courses, has also returned to boxing. Meal plan: Lean body RTD (40 gm) 2 meals 6 forks/4 forks ZP bar 6-9 Drinking 48-64 oz water Exercise plan: back to gym, boxing workouts, HIIT, Any post op complications: post op rhabdomyolysis and carpal tunnel syndrome RIMMA: resolved DM: never HTN: resolved Hyperlipidemia: resolved GERD:?0-5 scale ??0 = no symptoms ??1 = symptoms noticeable but not bothersome 2 =symptoms bothersome but not daily ? 3 = symptoms bothersome and daily 4 = symptoms affect daily activities 5 = symptoms are incapacitating, unable to do daily activities ? How bad is the heartburn: 0 ? Heartburn while lying down: 0 ? Heartburn when standing up: 0 ? Heartburn after meals: 0 ? Does heartburn change your diet: 0 ? Does heartburn wake you up from sleep: 0 ? Do you have difficulty swallowin ? Do you have pain with swallowin ? If you take medicine for your reflux, does this affect your daily life: 0 Satisfaction with present condition - satisfied or not satisfied: satisfied [facility] Medical History Bleeding hemorrhoids Sleep apnea Pre-op evaluation Morbid obesity Surgical History Hx of bariatric surgery Hx of knee surgery Family History Mother Arthritis Fibromyalgia Father No problems noted. Sister No problems noted. Son No problems noted. 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 Discussed sending in all measurements as his weight has not significantly changed but since he has been doing significant weightlifting, he likely has had increased muscle mass and decreased fat. He states that he feels amazing. Check six-month labs postoperatively. Continue therapy and Lyrica as needed for right upper extremity paresthesia. Return to clinic 6 weeks. Orders: Orders Insulin Today E66.9 - Obesity, unspecified, I10 - Essential (primary) hypertension, M62.82 - Rhabdomyolysis, Z98.84 - Bariatric surgery status Zinc Today E66.9 - Obesity, unspecified, I10 - Essential (primary) hypertension, M62.82 - Rhabdomyolysis, Z98.84 - Bariatric surgery status Vitamin B1 Today E66.9 - Obesity, unspecified, I10 - Essential (primary) hypertension, M62.82 - Rhabdomyolysis, Z98.84 - Bariatric surgery status Vitamin A Today E66.9 - Obesity, unspecified, I10 - Essential (primary) hypertension, M62.82 - Rhabdomyolysis, Z98.84 - Bariatric surgery status C Reactive Protein Today E66.9 - Obesity, unspecified, I10 - Essential (primary) hypertension, M62.82 - Rhabdomyolysis, Z98.84 - Bariatric surgery status PTHI Today E66.9 - Obesity, unspecified, I10 - Essential (primary) hypertension, M62.82 - Rhabdomyolysis, Z98.84 - Bariatric surgery status Basic Metabolic Panel Today E66.9 - Obesity, unspecified, I10 - Essential (primary) hypertension, M62.82 - Rhabdomyolysis, Z98.84 - Bariatric surgery status Lipid Panel Today E66.9 - Obesity, unspecified, I10 - Essential (primary) hypertension, M62.82 - Rhabdomyolysis, Z98.84 - Bariatric surgery status IRON PROFILE Today E66.9 - Obesity, unspecified, I10 - Essential (primary) hypertension, M62.82 - Rhabdomyolysis, Z98.84 - Bariatric surgery status Complete Blood Count Auto Diff Today E66.9 - Obesity, unspecified, I10 - Essential (primary) hypertension, M62.82 - Rhabdomyolysis, Z98.84 - Bariatric surgery status Vitamin B12 and Folate Today E66.9 - Obesity, unspecified, I10 - Essential (primary) hypertension, M62.82 - Rhabdomyolysis, Z98.84 - Bariatric surgery status Ferritin Today E66.9 - Obesity, unspecified, I10 - Essential (primary) hypertension, M62.82 - Rhabdomyolysis, Z98.84 - Bariatric surgery status Vitamin D 25-OH Total Today E66.9 - Obesity, unspecified, I10 - Essential (primary) hypertension, M62.82 - Rhabdomyolysis, Z98.84 - Bariatric surgery status Hemoglobin A1c Today E66.9 - Obesity, unspecified, I10 - Essential (primary) hypertension, M62.82 - Rhabdomyolysis, Z98.84 - Bariatric surgery status Telehealth Telehealth Location of provider rendering services: practice address Location of patient: address on file Patient Identification confirmed using: Name, : Yes Telehealth method: video Patient verbally consented to treatment: Yes Patient verbally consented to billing insurance company: Yes Patient informed of any privacy concerns related to visit: Yes Minutes spent on Phone/Video with Pt.: 20 Coding Level of Care Code Tele Est Pt Level 4 (05896) Diagnoses Obesity (BMI 30-39.9) E66.9 Time Spent (min) 30
[2022-12-16 11:02] VITALS: BMI 34.5
== END 2022-12-16 11:21 | disposition home or self-care (01) ==
LOC: HO.HBS 11:17
PROVIDERS: PCP Internal Medicine; Visit Provider Physician Assistant Surgical
DX: E66.9 Obesity, unspecified (principal); Z68.34 Body mass index [BMI] 34.0-34.9, adult; Z90.3 Acquired absence of stomach [part of]; Z98.84 Bariatric surgery status
CPT/HCPCS: 99442

== ENCOUNTER → 2022-12-16 11:00 | Outpatient (BNVA) | payer OTHER, SELFPAY | PROVIDERS: PCP Internal Medicine; Visit Provider Physician Assistant Surgical | DX: E66.9 Obesity, unspecified (principal) ==

== ENCOUNTER 2023-01-27 10:00 | Outpatient (AMB) | payer OTHER, SELFPAY ==
--- NOTE | 2023-01-27 09:54 | MHC.OFFVISWM ---
Intake VS Expanded 01/27/23 09:55 Height 5 ft 8 in Weight 229 lb 12.8 oz BMI 34.9 Intake Visit Reasons: (tv) PO LSG 06/11/22 Allergies No Known Allergies Allergy (Verified 09/16/22 10:06) HPI HPI Comments History of Present Illness Details This?a?32?yo male who is s/p LSG without hiatal hernia repair on?06/11/[address] Newton.? He developed post op rhabdomyolysis requiring an additional night in the hospital.? He developed LUE distal neuropathy> RUE distal.? His neuropathy in his feet has resolved and the right hand still has some residual paresthesia in his 5th digit.? He has seen Neurology and underwent EMG 07/06/22, suggestive of left median nerve compression through the carpal tunnel.? He saw Orhto in follow up on 07/10/22 and underwent Left CTS release on07/12/22.? He has since undergone intensive OT and has had significant improvement. Weight today is 229.8 pounds, with a BMI of 34.9.? There has been a 79.4 pound weight loss,(initial weight 309.2 pounds) since starting the program on 03/23/22 reflecting a 25.6% total body weight loss and a weight loss of 52.6 pounds since surgery (operative weight 282.4 pounds) reflecting a 18.6% TBWL since surgery.? No complaints of nausea, emesis, abdominal pain or reflux. Reports infrequent but normal bowel movements every 1-2 days and uses stool softeners regularly. Doing bariatric fusion. Pant size 36 from 44, clothes fitting much better, energy is great. Right hand is still having some issues with paresthesias. He is using Lyrica but has noticed significant improvement overall. 75-90 % return to normal. He is very very satisfied with his outcomes and has been able to be much more functional at work. He has been working extra due to his losing her job. Meal plan: Lean body RTD (40 gm) 2 meals 6 forks/4 forksZP bar 6-9 Drinking 48-64 oz water Exercise plan: 3-4 days per week, back to gym, boxing workouts, HIIT, [facility] Medical History Bleeding hemorrhoids Sleep apnea Pre-op evaluation Morbid obesity Surgical History Hx of bariatric surgery Hx of knee surgery Family History Mother Arthritis Fibromyalgia Father No problems noted. Sister No problems noted. Son No problems noted. 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 Overall he is extremely satisfied with the results of his efforts and the surgery. Continue current meal plan. Increase exercise as above. Return to clinic 3 weeks. Telehealth Telehealth Location of provider rendering services: practice address Location of patient: address on file Patient Identification confirmed using: Name, : Yes Telehealth method: voice only Patient verbally consented to treatment: Yes Patient verbally consented to billing insurance company: Yes Patient informed of any privacy concerns related to visit: Yes Minutes spent on Phone/Video with Pt.: 20 Coding Level of Care Code Tele Est Pt Level 3 (16068) Diagnoses Obesity (BMI 30-39.9) E66.9 Time Spent (min) 20
[2023-01-27 09:55] VITALS: BMI 34.9
== END 2023-01-27 10:37 | disposition home or self-care (01) ==
LOC: HO.HBS 10:29
PROVIDERS: PCP Internal Medicine; Visit Provider Physician Assistant Surgical
DX: E66.9 Obesity, unspecified (principal); Z68.34 Body mass index [BMI] 34.0-34.9, adult; Z90.3 Acquired absence of stomach [part of]; Z98.84 Bariatric surgery status
CPT/HCPCS: 99442

== ENCOUNTER → 2023-01-27 10:00 | Outpatient (BNVA) | payer OTHER, SELFPAY | PROVIDERS: PCP Internal Medicine; Visit Provider Physician Assistant Surgical | DX: E66.9 Obesity, unspecified (principal) ==

== ENCOUNTER 2023-02-17 14:45 | Outpatient (AMB) | payer OTHER, SELFPAY ==
--- NOTE | 2023-02-17 09:59 | A.OFFVIS_ITS ---
Intake VS Expanded 02/17/23 10:07 Height 5 ft 8 in Weight 230 lb 12.8 oz BMI 35.1 Intake Visit Reasons: (tv) PO LSG 06/11/22 Allergies No Known Allergies Allergy (Verified 09/16/22 10:06) HPI HPI Comments History of Present Illness Details This?a?32?yo male who is s/p LSG wit hout hiatal hernia repair on?06/11/[address] Newton. ? He developed pos t op rhabdomyolysi s requiring an add itional night in [facility].? He d eveloped LUE dista l neuropathy> RUE distal.? His neuro sammie in his feet has resolved and t right hand stil l has some residua l paresthesia in h is 5th digit.? He has seen Neurology and underwent EMG 07/06/22, suggestiv e of left median n erve compression t hrough the carpal tunnel.? He saw Or hto in follow up o n 07/10/22 and under went Left CTS rele ase on07/12/22.? He has since undergon e intensive OT and has had significa nt improvement. Weight today is 2 30.8 pounds, with a BMI of 34.9.? Th ere has been a 78. 4 pound weight los s,(initial weight 309.2 pounds) sinc e starting the pro gram on 03/23/22 re flecting a 25.6% t otal body weight l oss and a weight l oss of 51.6 pounds since surgery (op erative weight 282 .4 pounds) reflect ing a 18.6% TBWL s maryana surgery.? No complaints of naus ea, emesis, abdomi nal pain or reflux . Reports infreque nt but normal malissa l movements every 1-2 days and uses stool softeners re gularly. Doing ba riatric fusion. P ant size 36 from 4 4, clothes fitting much better, ener gy is great. Righ t hand is still craven ving some issues w ith paresthesias. He is using Michelle a but has noticed significant improv ement overall. 75 -90 % return to no rmal. He is very very satisfied wit h his outcomes and has been able to be much more funct ional at work. He has been working extra due to his w kraig losing her job . He needed to c ut the appointment sure as he was at work and needed t o attend to some ing. Meal plan: Lean body RTD (40 gm) 8 am 2 meals 6 forks/4 forks no on, 6 pm, ZP bar 3 pm Drinking 48-6 4 oz water Exerci se plan: 4-5 days per week, back to gym, boxing worko uts, HIIT, PFSH Medical History Bleeding hemorrhoids Sleep apnea Pre-op evaluation Morbid obesity Surgical History Hx of bariatric surgery Hx of knee surgery Family History Mother Arthritis Fibromyalgia Father No problems noted. Sister No problems noted. Son No problems noted. 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 He will continue his current meal plan. Continue exercise plan. He states that he will call the office back for follow-up appointment. Telehealth Telehealth Location of provider rendering services: practice address Location of patient: other Patient Identification confirmed using: Name, : Yes Telehealth method: voice only Patient verbally consented to treatment: Yes Patient verbally consented to billing insurance company: Yes Patient informed of any privacy concerns related to visit: Yes Minutes spent on Phone/Video with Pt.: 10 Coding Level of Care Code Tele Est Pt Level 2 (71690) Diagnoses Obesity (BMI 30-39.9) E66.9 Time Spent (min) 12
[2023-02-17 10:07] VITALS: BMI 35.1
== END 2023-02-17 15:05 | disposition home or self-care (01) ==
LOC: HO.HBS 14:45
PROVIDERS: PCP Internal Medicine; Visit Provider Physician Assistant Surgical
DX: E66.9 Obesity, unspecified (principal); Z68.35 Body mass index [BMI] 35.0-35.9, adult
CPT/HCPCS: 99441

== ENCOUNTER → 2023-02-17 14:45 | Outpatient (BNVA) | payer OTHER, SELFPAY | PROVIDERS: PCP Internal Medicine; Visit Provider Physician Assistant Surgical | DX: E66.9 Obesity, unspecified (principal) ==